=== PATIENT | female | born 1975 | race Caucasian/White ===

== ENCOUNTER 2016-12-08 10:51 | Observation (INO) ==
[2016-12-08] MEDS ORDERED: ONDANSETRON 4 MG/2 ML VIAL IV PRN (11:03)
[2016-12-08] MEDS ORDERED: ACETAMINOPHEN 325 MG TABLET PO PRN (11:03)
[2016-12-08] MEDS ORDERED: KETOROLAC 30 MG/1 ML VIAL IV ONE ×2 (11:06→13:00)
--- NOTE | 2016-12-08 11:44 | Internal Med History&Physical ---
Assessment and Plan (1) Chest pain Status: Acute Assessment and plan: 41-year-old female admitted to acute care * Chest pain. It appears to be quite atypical in nature. Her EKG was sinus rhythm in the office. Her troponin was negative yesterday in the emergency room. Patient is extremely anxious we will admit her under observation. Will check serial cardiac enzymes and will consult cardiology to evaluate. I do not think this pain is cardiac in nature * Leukocytosis with elevated liver enzymes. Probably a viral syndrome. Patient is not taking any hepatotoxic medications. Will repeat her blood work. Will check hepatitis profile. CT scan of the chest PE protocol did not reveal any obvious liver pathology. May need a dedicated ultrasound * Hypertension. Continue current medication * Generalized anxiety and depression. Continue current treatment * Discussed with patient. We will admit her under observation. (2) Elevated liver enzymes Status: Acute (3) Hypertension Status: Chronic (4) Obesity Status: Chronic History of Present Illness Chief complaint: Chest pain History of present illness: Ms. Gurrola is a 41 year old female with history of morbid obesity, hypertension, generalized anxiety disorder and pacemaker placement. She came to the office this morning with complaints of chest pain. Patient started having pain in her left calf yesterday evening. She was taken to a local hospital and then subsequently transferred to [facility]. Patient underwent evaluation with ultrasound and CT chest. It did not reveal any evidence of pulmonary embolus. She was given some pain medications and was sent home this morning.She continues to have chest pain and shortness of breath. Her chest pain is a squeezing type pain. She is quite anxious. She does not feel well. She stated that she was feeling quite well before this started yesterday. Patient was found to have elevated liver enzymes and leukocytosis on evaluation in the ER yesterday. She feels quite sick at this time. She denies any sinuses or cough. Home Medications Medication Instructions Recorded Confirmed Type Losartan/Hydrochlorothiazide 1 each PO DAILY 09/10/15 12/08/16 History [Losartan-Hctz 50-12.5 mg Tab] Nebivolol [Bystolic] 10 mg PO DAILY 09/10/15 12/08/16 History Sertraline [Zoloft] 50 mg PO DAILY 12/08/16 12/08/16 History Allergies Allergy/AdvReac Type Severity Reaction Status Date / Time codeine Allergy Severe SHORTNESS Verified 09/10/15 11:02 OF BREATH Penicillins Allergy Severe ITCHING Verified 09/10/15 11:02 Medical,Surgical,& Family Hx - Medical History Cardio: History of: Cardiac Dysrhythmia (Reveal implant August 2013), Hypertension, Pacemaker (2015. Dual-chamber), Cardiovascular Problems ( incomplete heart block) Psychological: History of: Depression Neurology: History of: Migraine No history of: Seizures Other: History of: Miscellaneous Medical Problems (morbid obesity) - Surgical History Abdominal Surgeries: Surgical HX of: Cholecystectomy (10 years), Hernia Repair Reproductive Surgeries: Surgical HX of;: Section, Dilation and Curettage Patient denies;: Genitourinary Surgery - Family History Family History: Reports;: Family Diabetes (Father), Family Hypertension - Social History Smoking Status: Never smoker Frequency of Alcohol Use: None Marital Status: Single Lives With:: Children Functional capacity: independent ambulation 12 point system: reviewed and no additional remarkable complaints except as stated (Mentioned in HPI) Exam - Constitutional Exam: Examination: GENERAL: NAD. She appears quite anxious HEENT: PERRLA. EOMI. Mucous membranes are moist. NECK: Neck is supple. No JVD. No carotid bruit. No thyromegaly. CVS: Regular rate and rhythm. S1 and S2 are normal. RESPIRATORY: Lungs are clear. No rales or rhonchi. ABDOMEN: Soft and nontender. Bowel sounds are present. No hepatosplenomegaly. EXT: No edema. Peripheral pulses are present. 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 Cranial nerves II through XII are grossly intact. Motor strength is 5 over 5 both upper and lower extremities. Sensory is intact. Deep tendon reflexes are present. SKIN: Warm and dry. MSK: No obvious deformity.
--- NOTE | 2016-12-08 12:33 | EKG Report ---
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
[2016-12-08 13:24] LABS: Basophils % 0.3 % (0.0-0.8); Hematocrit 38.2 VOL% (35.7-47.0); Hemoglobin 12.9 GM/DL (12.0-16.0); Immature Granulocytes % 0.4 %; Immature Granulocytes Absolute 0.04 #; Lymphocytes # 0.8 10*3/uL (1.4-4.0); Lymphocytes % 7.3 % (21.3-54.2); Mean Corpuscular HGB Conc 33.8 GM/DL (32-36); Mean Corpuscular Hemoglobin 29 PG (27-34); Mean Corpuscular Volume 85.1 FL (87-102); Mean Platelet Volume 9.4 FL (9.6-12.0); Monocytes # 0.4 10*3/uL (0.11-0.8); Neutrophils # 9.4 10*3/uL (1.4-7.4); Platelet Count 231 T/CUMM (130-400); Red Blood Count 4.49 MC/CUMM (3.8-5.5); Red Cell Distribution Width 13.5 % (9.3-17.3); White Blood Count 10.6 T/CUMM (4-12)
[2016-12-08 14:03] LABS: Albumin 3.3 G/DL (3.4-5.0); Bilirubin,Total 1.7 MG/DL (0.2-1.0); Calcium 8.6 MG/DL (8.5-10.1); Osmolality,Calculated 275.5 MOS/KG (273-304); Total Protein 6.7 G/DL (6.4-8.3)
[2016-12-08 14:04] LABS: Troponin I Only < 0.015 NG/ML (0.00-0.045)
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
[2016-12-08] MEDS ORDERED: PNEUMOCOCCAL VACCINE (23 VALENT) 0.5 ML VIAL IM ONE (14:50)
[2016-12-08 14:55] LABS: Hepatitis A Ab IgM Result Negative (Negative); Hepatitis B Core IgM Quant 0.16 Index; Hepatitis B Core IgM Result Negative (Negative); Hepatitis B Surface Ag Quant < 0.10 Index; Hepatitis B Surface Ag Result Negative (Negative); Hepatitis C Virus Ab Quant 0.07 Index; Hepatitis C Virus Ab Result Negative (Negative)
--- NOTE | 2016-12-08 15:25 | Internal Med Progress Note ---
Assessment and Plan (1) Nausea & vomiting Status: Acute Current Visit: Yes Qualifiers: Vomiting Intractability: non-intractable (2) Hypertension Status: Chronic Current Visit: Yes Qualifiers: Hypertension type: essential hypertension Qualified Code(s): I10 - Essential (primary) hypertension Internal Medicine - PN: Subj Interval history: This is a 41 year old female with history of HTN who is here in hospital with acute nausea, vomiting, body aches, and is starting to feel a little better since admission earlier this morning. Exam (Progress Note) - Constitutional Vitals: Period Temp Pulse Resp BP Sys/Hoff Pulse Ox Last 24 Hr 100.5 F 78 20 121/58 95 General appearance: no acute distress (appears fatigued) - Head Head exam: Present: normal inspection - Eye Eye exam: Present: EOMI - Respiratory Respiratory exam: Present: clear to auscultation bilaterally - Cardiovascular Cardiovascular exam: Present: regular rate and rhythm - GI/Abdominal GI/Abdominal exam: Present: hyperactive bowel sounds, soft. Absent: tenderness - Extremities Exam Extremities exam: Absent: edema - Back Exam Back exam: Present: normal inspection - Neurological Exam Neurological exam: Present: alert, oriented X3 - Psychiatric Psychiatric exam: Present: normal mood - Skin Skin exam: Present: warm, dry Results - Labs CBC & BMP: 12/08/16 13:06 12/08/16 13:05 - EKG EKG shows: sinus rhythm
[2016-12-08 17:49] LABS: Troponin I Only < 0.015 NG/ML (0.00-0.045)
[2016-12-08] MEDS ORDERED: ENOXAPARIN 40 MG/0.4 ML SYRINGE SUBCUT SCH (21:00)
[2016-12-08] MEDS: DOCUSATE SODIUM 100 MG CAPSULE PO SCH (21:06)
[2016-12-09 00:36] LABS: Apearance,Urine Slightly Hazy (Clear); Bacteria,Urine Occasional /HPF (Few); Bilirubin,Urine Negative (Negative); Blood, Urine Negative (Negative); Glucose,Urine (UA) Negative (Negative); Ketones,Urine Negative (Negative); Nitrite,Urine Negative (Negative); Protein,Urine 30 MG/DL; RBC,Urine 1 /HPF (0-4); Squamous Epithelial Cell,Urine Occasional /HPF (0-10); Urine Color Amber (Yellow); Urine Specific Gravity 1.026 (1.001-1.035); WBC,Urine 3 /HPF (0-6)
[2016-12-09] MEDS ORDERED: KETOROLAC 30 MG/1 ML VIAL IV PRN (00:49)
[2016-12-09] MEDS ORDERED: methylPREDNISolone SOD SUC 40 MG/1 ML VIAL IV SCH (01:00)
[2016-12-09] MEDS: SODIUM CHLORIDE 0.9% 1,000 ML IV SCH ×2 (01:03→11:10)
[2016-12-09 06:54] LABS: Troponin I Only < 0.015 NG/ML (0.00-0.045)
[2016-12-09 07:03] LABS: Calcium 8.6 MG/DL (8.5-10.1); Osmolality,Calculated 283.1 MOS/KG (273-304); Potassium 4.1 MMOL/L (3.5-5.1)
[2016-12-09] MEDS ORDERED: SERTRALINE 50 MG TABLET PO SCH (09:00)
[2016-12-09] MEDS ORDERED: PANTOPRAZOLE 40 MG TABLET PO SCH (09:00)
[2016-12-09] MEDS ORDERED: NEBIVOLOL 10 MG TABLET PO SCH (09:00)
[2016-12-09] MEDS ORDERED: LOSARTAN/HCTZ 50-12.5 MG TABLET PO SCH (09:00)
[2016-12-09] MEDS: DOCUSATE SODIUM 100 MG CAPSULE PO SCH (09:32)
[2016-12-09 11:48] VITALS: BP 133/74
--- NOTE | 2016-12-09 13:43 | Cardiology Progress Note ---
Assessment and Plan - Time spent with patient Time spent with patient: Less than 30 minutes (1) Obesity Status: Chronic Current Visit: No Qualifiers: Obesity type: due to excess calories (2) Hypertension Status: Chronic Current Visit: Yes Qualifiers: Hypertension type: essential hypertension Qualified Code(s): I10 - Essential (primary) hypertension (3) Chest pain Status: Acute Assessment and plan: This is atypical. Current Visit: Yes Cardiology - PN: Subj Interval history: Ms. Gurrola feels much better today no more nausea no more fatigue no more chest discomfort no more syncope or near syncope. I reviewed her transthoracic echo her ejection fraction is 65% or greater with no regional wall motion normalities she has never had exertional component of discomfort. Also discussed with her primary animal care technician Dr. Emeterio Turner yesterday. I do not think further cardiac workup is warranted at this time. I would recommend that she follow-up with Dr. Turner within the next month. I told her to notify me or him if he has she has any chest discomfort. I have recommended caloric restriction minimize Diet Mountain Dews, push water and daily exercise. Exam (Progress Note) - Constitutional Vitals: Period Temp Pulse Resp BP Sys/Hoff Pulse Ox Last 24 Hr 96.2 F-98 F 20-75 18-22 118-151/60-86 92-96 General appearance: morbidly obese - Respiratory Respiratory exam: Present: clear to auscultation bilaterally - Cardiovascular Cardiovascular exam: Present: regular rate and rhythm Result/EKG - Labs CBC & BMP: 12/08/16 13:06 12/09/16 06:05 Labs: Laboratory Results - last 24 hr 12/08/16 12/08/16 12/08/16 13:05 13:06 13:06 ESR [place] 29 H Sodium 139 Potassium 4.0 Chloride 102 Carbon Dioxide 25 Anion Gap 16.0 H BUN 11 Creatinine 0.80 GFR Calculation 134 BUN/Creatinine Ratio 13.00 Glucose 91 Calculated Osmolality 275.5 Calcium 8.6 Total Bilirubin 1.70 H AST 202 H ALT 180 H Alkaline Phosphatase 81 Total Creatine Kinase 440 H D CK-MB (CK-2) < 1.0 Troponin I < 0.015 B-Natriuretic Peptide Total Protein 6.7 Albumin 3.3 L Globulin 3.4 Albumin/Globulin Ratio 0.9 L Urine Color Urine Appearance Urine pH Ur Specific [place] Urine Protein Urine Glucose (UA) Urine Ketones Urine Blood Urine Nitrate Urine Bilirubin Urine Urobilinogen Urine Leukocytes Urine RBC Urine WBC Ur Squamous Epith Cells Urine Bacteria Ur Culture Indicated? Hepatitis A IgM Ab Hep Bs Antigen Hep B Core IgM Ab Hepatitis C Antibody 12/08/16 12/08/16 12/08/16 13:07 13:07 16:38 ESR [place] Sodium Potassium Chloride Carbon Dioxide Anion Gap BUN Creatinine GFR Calculation BUN/Creatinine Ratio Glucose Calculated Osmolality Calcium Total Bilirubin AST ALT Alkaline Phosphatase Total Creatine Kinase 434 H CK-MB (CK-2) < 1.0 Troponin I < 0.015 B-Natriuretic Peptide 30 Total Protein Albumin Globulin Albumin/Globulin Ratio Urine Color Urine Appearance Urine pH Ur Specific [place] Urine Protein Urine Glucose (UA) Urine Ketones Urine Blood Urine Nitrate Urine Bilirubin Urine Urobilinogen Urine Leukocytes Urine RBC Urine WBC Ur Squamous Epith Cells Urine Bacteria Ur Culture Indicated? Hepatitis A IgM Ab Negative Hep Bs Antigen Negative Hep B Core IgM Ab Negative Hepatitis C Antibody Negative 12/09/16 12/09/16 12/09/16 00:29 06:05 06:05 ESR [place] Sodium 142 Potassium 4.1 Chloride 106 Carbon Dioxide 24 Anion Gap 16.1 H BUN 11 Creatinine 0.80 GFR Calculation 135 BUN/Creatinine Ratio 13.00 Glucose 132 H Calculated Osmolality 283.1 Calcium 8.6 Total Bilirubin AST ALT Alkaline Phosphatase Total Creatine Kinase 442 H CK-MB (CK-2) < 1.0 Troponin I < 0.015 B-Natriuretic Peptide Total Protein Albumin Globulin Albumin/Globulin Ratio Urine Color [place] Urine Appearance Slightly hazy Urine pH 5.0 Ur Specific [place] 1.026 Urine Protein 30 Urine Glucose (UA) Negative Urine Ketones Negative Urine Blood Negative Urine Nitrate Negative Urine Bilirubin Negative Urine Urobilinogen 4.0 H Urine Leukocytes Negative Urine RBC 1 Urine WBC 3 Ur Squamous Epith Cells Occasional Urine Bacteria Occasional Ur Culture Indicated? Not indicated Hepatitis A IgM Ab Hep Bs Antigen Hep B Core IgM Ab Hepatitis C Antibody
--- NOTE | 2016-12-09 15:29 | Discharge Summary ---
Hospital Course - Hospital Course Hospital Course: This is a 41 year old female with history of HTN who is here in hospital with acute nausea, vomiting, body aches, and is starting to feel a little better since admission earlier this morning. She was found to have elevated liver function enzymes and was responsive to fluids. Body aches responsive to Toradol and Solumedrol that were started last night. Also, Cozaar was discontinued for now. She feels much better and would like to go home. She will follow up with Dr. Cohen. Diagnosis - Discharge Diagnosis (1) Nausea & vomiting Status: Resolved (2) Hypertension Status: Chronic (3) Elevated liver enzymes Status: Acute Discharge Plan - Discharge Data Disposition: Disch To Home/Self Care Condition at Discharge: Stable Activity: resume usual activities as tolerated - Discharge Medications New Docusate Sodium Cap [Colace Cap] 100 mg PO BID capsule Hydrochlorothiazide [Microzide] 12.5 mg PO AC BREAKFAST #30 capsule Sertraline [Zoloft] 50 mg PO DAILY tablet methylPREDNISolone DOSEPAK [Medrol Dosepak] 4 mg PO DIRECTED #1 pack Continue Nebivolol [Bystolic] 10 mg PO DAILY Discontinued Losartan/Hydrochlorothiazide [Losartan-Hctz 50-12.5 mg Tab] 1 each PO DAILY Sertraline [Zoloft] 50 mg PO DAILY - Follow Up or Referral Follow Up: Michael Cohen MD [Primary Care Provider] - - Forms/Instructions Exam - Constitutional Vitals: Period Temp Pulse Resp BP Sys/Hoff Pulse Ox Last 24 Hr 96.2 F-98 F 20-75 18-22 118-151/60-86 92-96 General appearance: no acute distress - Respiratory Respiratory exam: Present: clear to auscultation bilaterally - Cardiovascular Cardiovascular exam: Present: regular rate and rhythm - GI/Abdominal GI/Abdominal exam: Present: soft. Absent: tenderness - Extremities Exam Extremities exam: Absent: edema - Neurological Exam Neurological exam: Present: alert, oriented X3 - Psychiatric Psychiatric exam: Present: normal mood - Skin Skin exam: Present: warm, dry Discharge Results Procedures and tests throughout hospitalization: Pending Orders 12/08/16 16:46 Blood Culture Stat Labs on day of discharge: Labs from last 24 hours 12/09/16 12/09/16 12/09/16 06:05 06:05 00:29 Sodium 142 Potassium 4.1 Chloride 106 Carbon Dioxide 24 Anion Gap 16.1 H BUN 11 Creatinine 0.80 GFR Calculation 135 BUN/Creatinine Ratio 13.00 Glucose 132 H Calculated Osmolality 283.1 Calcium 8.6 Total Creatine Kinase 442 H CK-MB (CK-2) < 1.0 Troponin I < 0.015 Urine Color [place] Urine Appearance Slightly hazy Urine pH 5.0 Ur Specific [place] 1.026 Urine Protein 30 Urine Glucose (UA) Negative Urine Ketones Negative Urine Blood Negative Urine Nitrate Negative Urine Bilirubin Negative Urine Urobilinogen 4.0 H Urine Leukocytes Negative Urine RBC 1 Urine WBC 3 Ur Squamous Epith Cells Occasional Urine Bacteria Occasional Ur Culture Indicated? Not indicated 12/08/16 16:38 Sodium Potassium Chloride Carbon Dioxide Anion Gap BUN Creatinine GFR Calculation BUN/Creatinine Ratio Glucose Calculated Osmolality Calcium Total Creatine Kinase 434 H CK-MB (CK-2) < 1.0 Troponin I < 0.015 Urine Color Urine Appearance Urine pH Ur Specific [place] Urine Protein Urine Glucose (UA) Urine Ketones Urine Blood Urine Nitrate Urine Bilirubin Urine Urobilinogen Urine Leukocytes Urine RBC Urine WBC Ur Squamous Epith Cells Urine Bacteria Ur Culture Indicated? DS: Provider Date of admission: 12/08/16 12:06 Primary care physician: Michael Cohen MD Attending physician on admission: Michael Cohen MD Consults: 12/08/16 11:03 Consult to Case Mgmt/Social Srvs [CONS] Routine Reason for Case Mgmt/Social Srvs: Discharge Planning Consult to Physician [CONS] Routine Comment: Chest pain Consulting Provider: Cardiology - [facility] Consulting Provider Notified: Yes When should Consulting Provider be notified: Now Consult to Specialist Group: Cardiology When should Consulting Provider be notified: Now Person Notified: LJ Date Notified: 12/08/16 Time Notified: 12:25 12/08/16 11:16 Consult to Pharmacy [CONS] Routine Reason for Pharmacy Consult: Adjust Meds Renal Funct Discharging clinician: Yenny Hubbard DO Expected date of discharge: 12/09/16
--- NOTE | 2016-12-09 15:29 | Internal Med Progress Note ---
Assessment and Plan (1) Nausea & vomiting Status: Acute Current Visit: Yes Qualifiers: Vomiting Intractability: non-intractable (2) Hypertension Status: Chronic Current Visit: Yes Qualifiers: Hypertension type: essential hypertension Qualified Code(s): I10 - Essential (primary) hypertension (3) Elevated liver enzymes Status: Acute Current Visit: Yes Internal Medicine - PN: Subj Interval history: This is a 41 year old female with history of HTN who is here in hospital with acute nausea, vomiting, body aches, and is starting to feel a little better since admission earlier this morning. She was found to have elevated liver function enzymes and was responsive to fluids. Body aches responsive to Toradol and Solumedrol that were started last night. Also, Cozaar was discontinued for now. She feels much better and would like to go home. Exam (Progress Note) - Constitutional Vitals: Period Temp Pulse Resp BP Sys/Hoff Pulse Ox Last 24 Hr 96.2 F-98 F 20-75 18-22 118-151/60-86 92-96 General appearance: no acute distress - Respiratory Respiratory exam: Present: clear to auscultation bilaterally - Cardiovascular Cardiovascular exam: Present: regular rate and rhythm - GI/Abdominal GI/Abdominal exam: Present: soft. Absent: tenderness - Extremities Exam Extremities exam: Absent: edema - Neurological Exam Neurological exam: Present: alert, oriented X3 - Psychiatric Psychiatric exam: Present: normal mood - Skin Skin exam: Present: warm, dry Results - Labs CBC & BMP: 12/08/16 13:06 12/09/16 06:05
--- NOTE | 2016-12-09 16:30 | ECHO Report ---
Stella Gurrola Exam Date: 12/08/2016 17:37 Referring Physician: Technologist: Marisol Mcclellan RDCS Age: 41 Ht (in): Wt (lb): Gender: F Exam Location: [facility] Echo Indications: Chest pain, unspecified, Shortness of breath, Essential (primary) hypertension, Morbid (severe) obesity due to excess calories BP: / HR: Rhythm: Sinus Technical Quality: IMPRESSIONS Left ventricular ejection fraction is estimated at 65 %. There is no regional wall motion abnormality. Diastolic parameters are most consistent with grade 2 diastolic dysfunction or pseudonormalization. There is a prominent anterior fat pad. Pacemaker wire visualized in the right ventricle. There is mild tricuspid and mild pulmonic insufficiency with estimated PA pressure of 28/4+ the right atrial pressure added to each component MEASUREMENTS (Male / Female) Normal Values 2D ECHO LV Diastolic Diameter PLAX 4.5 cm 4.2 - 5.9 / 3.9 - 5.3 cm LV Systolic Diameter PLAX 2.5 cm LV Fractional Shortening PLAX 44.2 % IVS Diastolic Thickness 1.1 cm 0.6 - 1.0 / 0.6 - 0.9 cm LVPW Diastolic Thickness 1.1 cm 0.6 - 1.0 / 0.6 - 0.9 cm RV Internal Dim ED PLAX 4.0 cm Aortic Root Diameter 3.2 cm LA Systolic Diameter LX 3.5 cm 3.0 - 4.0 / 2.7 - 3.8 cm DOPPLER TR Peak Velocity 265.0 cm/s TR Peak Gradient 28.1 mmHg FINDINGS Left Ventricle Normal left ventricular cavity size. Mild left ventricular hypertrophy. Left ventricular ejection fraction is estimated at 65 %. Diastolic parameters are most consistent with grade 2 diastolic dysfunction or pseudonormalization. There is a prominent anterior fat pad. There is no regional wall motion abnormality Right Ventricle Normal right ventricular size and systolic function. Pacemaker wire visualized in the right ventricle. Right Atrium Normal right atrial size. Pacemaker wire in the right atrial cavity. Left Atrium The left atrium is normal in size. Mitral Valve Morphologically normal mitral valve without significant stenosis or prolapse. There is no mitral regurgitation. Aortic Valve Morphologically normal aortic valve without significant sclerosis or stenosis. There is no aortic regurgitation. Tricuspid Valve Morphologically normal tricuspid valve. Trace to mild tricuspid valve regurgitation. Tricuspid regurgitation velocities suggest a RVSP of 28 mmHg plus the right atrial pressure. Pulmonic Valve Morphologically normal pulmonic valve. Mild pulmonic insufficiency diastolic velocity 1 m/s Pericardium Normal pericardium without effusion. Aorta Normal ascending aorta dimension. Venessa Marvin (Electronically Signed) Final Date: 09 December 2016 12:04
== END 2016-12-09 17:51 | disposition home or self-care (01) ==
LOC: N.4E
PROVIDERS: ADMIT Internal Medicine; ATTEND Internal Medicine

== ENCOUNTER 2019-02-14 13:04 | Inpatient (IN) ==
[2019-02-14] MEDS ORDERED: KETOROLAC 30 MG/1 ML VIAL IV STA (14:28)
[2019-02-14] MEDS ORDERED: SODIUM CHLORIDE 0.9% 1,000 ML IV ONE (14:28)
[2019-02-14 15:05] LABS: Basophils % 0.3 % (0.0-0.8); Eosinophils % 0.3 % (0.00-10.9); Hematocrit 38.2 VOL% (35.7-47.0); Immature Granulocytes % 0.9 %; Immature Granulocytes Absolute 0.13 #; Lymphocytes # 1.6 10*3/uL (1.4-4.0); Lymphocytes % 10.9 % (21.3-54.2); Mean Corpuscular HGB Conc 31.4 GM/DL (32-36); Mean Corpuscular Volume 88.2 FL (87-102); Mean Platelet Volume 9.5 FL (9.6-12.0); Monocytes % 6.8 % (1.7-12.7); Neutrophils % 80.8 % (38.7-73.9); Platelet Count 337 T/CUMM (130-400); Red Blood Count 4.33 MC/CUMM (3.8-5.5); Red Cell Distribution Width 13.3 % (9.3-17.3); White Blood Count 14.9 T/CUMM (4-12)
[2019-02-14 15:36] LABS: Calcium 8.2 MG/DL (8.5-10.1); Osmolality,Calculated 272.8 MOS/KG (273-304)
[2019-02-14] MEDS ORDERED: ONDANSETRON 4 MG/2 ML VIAL IV STA (15:53)
[2019-02-14] MEDS ORDERED: ONDANSETRON 4 MG/2 ML VIAL IV PRN (16:37)
[2019-02-14 17:21] LABS: Apearance,Urine CLEAR (Clear); Bilirubin,Urine Negative (Negative); Blood, Urine Negative (Negative); Glucose,Urine (UA) Negative (Negative); Ketones,Urine Negative (Negative); Mucus,Urine Many /LPF (Occasional); Nitrite,Urine Negative (Negative); Protein,Urine Negative; Squamous Epithelial Cell,Urine Occasional /HPF (0-10); Urine Color Amber (Yellow); Urine Specific Gravity 1.021 (1.001-1.035); WBC,Urine 1 /HPF (0-6)
[2019-02-14] MEDS: ACETAMINOPHEN 325 MG TABLET PO PRN (18:03)
[2019-02-14] MEDS: cefTRIAXone 1,000 MG in SYRINGE 1 EACH IV SCH (20:06)
[2019-02-14] MEDS: SODIUM CHLORIDE 0.9% 1,000 ML IV SCH (20:06)
[2019-02-14] MEDS: ENOXAPARIN 40 MG/0.4 ML SYRINGE SUBCUT SCH (20:16)
[2019-02-14] MEDS: DOCUSATE SODIUM 100 MG CAPSULE PO SCH (20:16)
[2019-02-14] MEDS ORDERED: GENTAMICIN IV SCH (21:00)
[2019-02-14] MEDS ORDERED: DOCUSATE SODIUM 100 MG CAPSULE PO SCH (21:00)
[2019-02-14] MEDS ORDERED: SODIUM CHLORIDE 0.9% IV SCH (21:00)
[2019-02-14] MEDS: GENTAMICIN IV SCH (21:19)
[2019-02-14] MEDS: SODIUM CHLORIDE 0.9% IV SCH (21:19)
[2019-02-15] MEDS: ACETAMINOPHEN 325 MG TABLET PO PRN ×3 (01:21→20:02)
[2019-02-15] MEDS: KETOROLAC 30 MG/1 ML VIAL IV PRN (03:14)
[2019-02-15] MEDS: SODIUM CHLORIDE 0.9% 1,000 ML IV SCH ×2 (04:37→18:59)
[2019-02-15] MEDS: cefTRIAXone 1,000 MG in SYRINGE 1 EACH IV SCH ×2 (05:17→18:05)
[2019-02-15 05:41] LABS: Albumin 2.2 G/DL (3.4-5.0); Bilirubin,Total 2.8 MG/DL (0.2-1.0); Calcium 7.9 MG/DL (8.5-10.1); Osmolality,Calculated 276.5 MOS/KG (273-304); Total Protein 6.4 G/DL (6.4-8.3)
[2019-02-15] MEDS ORDERED: SERTRALINE 50 MG TABLET PO SCH (09:00)
[2019-02-15] MEDS: PANTOPRAZOLE 40 MG TABLET PO SCH (09:16)
[2019-02-15] MEDS: NEBIVOLOL 10 MG TABLET PO SCH (09:16)
[2019-02-15] MEDS: SERTRALINE 100 MG TABLET PO SCH ×2 (09:16→20:02)
[2019-02-15 09:32] LABS: Basophils % 0.2 % (0.0-0.8); Eosinophils % 0.2 % (0.00-10.9); Hematocrit 33.6 VOL% (35.7-47.0); Hemoglobin 10.5 GM/DL (12.0-16.0); Immature Granulocytes % 0.9 %; Immature Granulocytes Absolute 0.11 #; Lymphocytes # 1.1 10*3/uL (1.4-4.0); Lymphocytes % 8.4 % (21.3-54.2); Mean Corpuscular HGB Conc 31.3 GM/DL (32-36); Mean Platelet Volume 9.4 FL (9.6-12.0); Monocytes % 5.1 % (1.7-12.7); Neutrophils % 85.2 % (38.7-73.9); Platelet Count 281 T/CUMM (130-400); Red Blood Count 3.82 MC/CUMM (3.8-5.5); Red Cell Distribution Width 13.4 % (9.3-17.3); White Blood Count 12.8 T/CUMM (4-12)
[2019-02-15] MEDS: DOCUSATE SODIUM 100 MG CAPSULE PO SCH ×2 (10:01→21:14)
[2019-02-15] MEDS: ONDANSETRON 4 MG/2 ML VIAL IV PRN ×2 (15:04→18:04)
[2019-02-15] MEDS: HYDROmorphone 2 MG/1 ML VIAL IV SCH ×3 (15:57→18:12)
[2019-02-15] MEDS: SODIUM CHLOR 0.9% KCL 20 MEQ 20 MEQ/1,000 ML BAG IV SCH (16:18)
[2019-02-15] MEDS: ENOXAPARIN 40 MG/0.4 ML SYRINGE SUBCUT SCH (17:32)
[2019-02-15] MEDS: GENTAMICIN IV SCH (21:07)
[2019-02-15] MEDS: SODIUM CHLORIDE 0.9% IV SCH (21:07)
[2019-02-15] MEDS: HYDROmorphone 2 MG/1 ML VIAL IV PRN (21:07)
[2019-02-15] MEDS ORDERED: IBUPROFEN 600 MG TABLET PO PRN (21:25)
[2019-02-16] MEDS: ONDANSETRON 4 MG/2 ML VIAL IV PRN ×4 (00:19→16:13)
[2019-02-16] MEDS: KETOROLAC 30 MG/1 ML VIAL IV PRN ×2 (02:28→10:53)
[2019-02-16] MEDS: SODIUM CHLOR 0.9% KCL 20 MEQ 20 MEQ/1,000 ML BAG IV SCH ×3 (03:47→17:02)
[2019-02-16] MEDS: cefTRIAXone 1,000 MG in SYRINGE 1 EACH IV SCH (04:57)
[2019-02-16 05:03] LABS: Basophils % 0.1 % (0.0-0.8); Eosinophils % 0.1 % (0.00-10.9); Hematocrit 30.8 VOL% (35.7-47.0); Hemoglobin 9.8 GM/DL (12.0-16.0); Immature Granulocytes % 1.3 %; Immature Granulocytes Absolute 0.19 #; Lymphocytes # 1.2 10*3/uL (1.4-4.0); Lymphocytes % 7.8 % (21.3-54.2); Mean Corpuscular HGB Conc 31.8 GM/DL (32-36); Mean Corpuscular Volume 88.3 FL (87-102); Mean Platelet Volume 10.2 FL (9.6-12.0); Monocytes % 3.6 % (1.7-12.7); Neutrophils % 87.1 % (38.7-73.9); Platelet Count 319 T/CUMM (130-400); Red Blood Count 3.49 MC/CUMM (3.8-5.5); Red Cell Distribution Width 13.8 % (9.3-17.3); White Blood Count 15.1 T/CUMM (4-12)
[2019-02-16 05:35] LABS: Bilirubin,Total 1.7 MG/DL (0.2-1.0); Calcium 7.8 MG/DL (8.5-10.1); Osmolality,Calculated 272.1 MOS/KG (273-304); Total Protein 6.2 G/DL (6.4-8.3)
[2019-02-16] MEDS: ACETAMINOPHEN 325 MG TABLET PO PRN (05:55)
[2019-02-16] MEDS ORDERED: hydroCHLOROthiazide 25 MG TABLET PO SCH (07:30)
[2019-02-16] MEDS ORDERED: CLINDAMYCIN INJ 900 MG in PREMIX 1 EACH IV SCH (09:00)
[2019-02-16] MEDS ORDERED: CLINDAMYCIN 600 MG/4 ML VIAL IM SCH (09:00)
[2019-02-16] MEDS ORDERED: CLINDAMYCIN 600 MG/4 ML VIAL IV SCH (10:50)
[2019-02-16] MEDS: PIPERACILLIN/TAZOBACTAM 3,375 MG in SODIUM CHLORIDE 0.9% 100 ML IV SCH ×2 (10:52→18:43)
[2019-02-16] MEDS: PANTOPRAZOLE 40 MG TABLET PO SCH (10:53)
[2019-02-16] MEDS: SERTRALINE 100 MG TABLET PO SCH ×2 (10:53→20:44)
[2019-02-16] MEDS: DOCUSATE SODIUM 100 MG CAPSULE PO SCH ×2 (13:26→20:44)
[2019-02-16] MEDS: NEBIVOLOL 10 MG TABLET PO SCH (13:27)
[2019-02-16] MEDS: CLINDAMYCIN INJ 600 MG in PREMIX 1 EACH IV SCH (15:47)
[2019-02-16] MEDS: ENOXAPARIN 40 MG/0.4 ML SYRINGE SUBCUT SCH (17:02)
[2019-02-16] MEDS: methylPREDNISolone SOD SUC 40 MG/1 ML VIAL IV SCH (18:44)
[2019-02-16] MEDS: ACETAMINOPHEN 500 MG TABLET PO PRN (18:49)
[2019-02-17] MEDS: CLINDAMYCIN INJ 600 MG in PREMIX 1 EACH IV SCH ×3 (00:30→17:00)
[2019-02-17] MEDS: SODIUM CHLOR 0.9% KCL 20 MEQ 20 MEQ/1,000 ML BAG IV SCH ×3 (00:31→08:44)
[2019-02-17] MEDS: methylPREDNISolone SOD SUC 40 MG/1 ML VIAL IV SCH ×3 (02:51→17:01)
[2019-02-17] MEDS: PIPERACILLIN/TAZOBACTAM 3,375 MG in SODIUM CHLORIDE 0.9% 100 ML IV SCH ×3 (02:52→17:54)
[2019-02-17] MEDS: ONDANSETRON 4 MG/2 ML VIAL IV PRN (04:24)
[2019-02-17 05:30] LABS: Basophils # 0.1 10*3/uL (0.0-0.2); Basophils % 0.3 % (0.0-0.8); Hematocrit 32.1 VOL% (35.7-47.0); Hemoglobin 10.1 GM/DL (12.0-16.0); Immature Granulocytes % 1.8 %; Immature Granulocytes Absolute 0.34 #; Lymphocytes # 0.8 10*3/uL (1.4-4.0); Lymphocytes % 3.9 % (21.3-54.2); Mean Corpuscular HGB Conc 31.5 GM/DL (32-36); Mean Corpuscular Volume 87.5 FL (87-102); Mean Platelet Volume 9.9 FL (9.6-12.0); Monocytes % 2.2 % (1.7-12.7); Neutrophils % 91.8 % (38.7-73.9); Platelet Count 351 T/CUMM (130-400); Red Blood Count 3.67 MC/CUMM (3.8-5.5); Red Cell Distribution Width 13.9 % (9.3-17.3)
[2019-02-17 06:00] LABS: Albumin 1.8 G/DL (3.4-5.0); Bilirubin,Total 1.6 MG/DL (0.2-1.0); Calcium 7.7 MG/DL (8.5-10.1); Osmolality,Calculated 275.1 MOS/KG (273-304); Total Protein 6.3 G/DL (6.4-8.3)
[2019-02-17 07:10] LABS: Band Neutrophils 5 % (0-10); Hypochromasia 1+; Lymphocytes 1 % (20-55); Ovalocytes Slight; Platelet Estimate Adequate; Segmented Neutrophils 92 % (50-85); Total Cells Counted 100
[2019-02-17] MEDS: SERTRALINE 100 MG TABLET PO SCH ×2 (08:46→20:45)
[2019-02-17] MEDS: ACETAMINOPHEN 500 MG TABLET PO PRN ×2 (08:46→20:41)
[2019-02-17] MEDS: DOCUSATE SODIUM 100 MG CAPSULE PO SCH ×2 (08:46→20:45)
[2019-02-17] MEDS: PANTOPRAZOLE 40 MG TABLET PO SCH (08:46)
[2019-02-17] MEDS: SODIUM BICARB INJ 50 MEQ, POTASSIUM CHLORIDE INJ 20 MEQ in SODIUM CHLORIDE 0.45% 1,000 ML IV SCH ×2 (14:37→20:37)
[2019-02-17] MEDS: ENOXAPARIN 30 MG/0.3 ML SYRINGE SUBCUT SCH (20:44)
[2019-02-18] MEDS: CLINDAMYCIN INJ 600 MG in PREMIX 1 EACH IV SCH ×3 (01:43→16:01)
[2019-02-18] MEDS: PIPERACILLIN/TAZOBACTAM 3,375 MG in SODIUM CHLORIDE 0.9% 100 ML IV SCH ×3 (02:19→16:40)
[2019-02-18] MEDS: SODIUM BICARB INJ 50 MEQ, POTASSIUM CHLORIDE INJ 20 MEQ in SODIUM CHLORIDE 0.45% 1,000 ML IV SCH ×4 (02:48→21:46)
[2019-02-18 05:35] LABS: Calcium 7.9 MG/DL (8.5-10.1); Osmolality,Calculated 288.4 MOS/KG (273-304)
[2019-02-18 06:01] LABS: Basophils # 0.1 10*3/uL (0.0-0.2); Basophils % 0.2 % (0.0-0.8); Hematocrit 33.9 VOL% (35.7-47.0); Hemoglobin 10.8 GM/DL (12.0-16.0); Immature Granulocytes % 1.5 %; Immature Granulocytes Absolute 0.33 #; Lymphocytes # 1.2 10*3/uL (1.4-4.0); Lymphocytes % 5.1 % (21.3-54.2); Mean Corpuscular HGB Conc 31.9 GM/DL (32-36); Mean Corpuscular Volume 87.8 FL (87-102); Mean Platelet Volume 10.3 FL (9.6-12.0); Monocytes % 3.1 % (1.7-12.7); Neutrophils % 90.1 % (38.7-73.9); Platelet Count 434 T/CUMM (130-400); Red Blood Count 3.86 MC/CUMM (3.8-5.5); Red Cell Distribution Width 14.2 % (9.3-17.3); White Blood Count 22.6 T/CUMM (4-12)
[2019-02-18 07:26] LABS: Hypochromasia 1+; Lymphocytes 5 % (20-55); Platelet Estimate Adequate; Segmented Neutrophils 92 % (50-85); Total Cells Counted 100
[2019-02-18] MEDS: SERTRALINE 100 MG TABLET PO SCH ×2 (08:47→21:39)
[2019-02-18] MEDS: PANTOPRAZOLE 40 MG TABLET PO SCH (08:47)
[2019-02-18] MEDS: DOCUSATE SODIUM 100 MG CAPSULE PO SCH ×2 (08:47→21:39)
[2019-02-18] MEDS: ACETAMINOPHEN 500 MG TABLET PO PRN (20:00)
[2019-02-18] MEDS: traZODone 50 MG TABLET PO PRN (21:39)
[2019-02-18] MEDS: ENOXAPARIN 30 MG/0.3 ML SYRINGE SUBCUT SCH (21:47)
[2019-02-19] MEDS: CLINDAMYCIN INJ 600 MG in PREMIX 1 EACH IV SCH ×2 (00:32→07:56)
[2019-02-19] MEDS: HYDROmorphone 2 MG/1 ML VIAL IV PRN ×5 (00:33→17:57)
[2019-02-19] MEDS: ACETAMINOPHEN 500 MG TABLET PO PRN ×2 (02:47→21:24)
[2019-02-19] MEDS: PIPERACILLIN/TAZOBACTAM 3,375 MG in SODIUM CHLORIDE 0.9% 100 ML IV SCH (02:49)
[2019-02-19 04:59] LABS: Calcium 6.9 MG/DL (8.5-10.1); Osmolality,Calculated 281.8 MOS/KG (273-304)
[2019-02-19] MEDS: SODIUM BICARB INJ 50 MEQ, POTASSIUM CHLORIDE INJ 20 MEQ in SODIUM CHLORIDE 0.45% 1,000 ML IV SCH ×2 (07:11→14:48)
[2019-02-19] MEDS: LEVOFLOXACIN INJ 500 MG in PREMIX 1 EACH IV SCH (09:06)
[2019-02-19] MEDS ORDERED: BUPIVACAINE 0.5% 50 ML VIAL ONE (10:51)
[2019-02-19] MEDS ORDERED: LIDOCAINE 1%/EPI INJ 20 ML VIAL ONE (10:51)
[2019-02-19] MEDS ORDERED: SCOPOLAMINE 1.5 MG PATCH TRANSDERM ONE (11:00)
[2019-02-19] MEDS ORDERED: HYDROmorphone 2 MG/1 ML VIAL ONE (12:32)
[2019-02-19] MEDS ORDERED: ONDANSETRON 4 MG/2 ML VIAL ONE (12:32)
[2019-02-19] MEDS ORDERED: PROPOFOL 200 MG/20 ML VIAL IV ONE (12:41)
[2019-02-19] MEDS ORDERED: DESFLURANE 1 UNIT/15 MINUTE INH ONE (12:42)
[2019-02-19] MEDS ORDERED: fentaNYL 100 MCG/2 ML VIAL ONE (12:42)
[2019-02-19] MEDS ORDERED: PHENYLEPHRINE 1 MG/10 ML SYRINGE IV ONE (12:43)
[2019-02-19] MEDS ORDERED: SUCCINYLCHOLINE 200 MG/10 ML VIAL ONE (12:43)
[2019-02-19] MEDS ORDERED: ROCURONIUM 100 MG/10 ML VIAL IV ONE (12:43)
[2019-02-19] MEDS ORDERED: HYDROmorphone 2 MG/1 ML VIAL IV PRN (12:44)
[2019-02-19] MEDS ORDERED: ONDANSETRON 4 MG/2 ML VIAL IV PRN (12:44)
[2019-02-19] MEDS: SERTRALINE 100 MG TABLET PO SCH ×2 (14:43→20:46)
[2019-02-19] MEDS: PANTOPRAZOLE 40 MG TABLET PO SCH (14:43)
[2019-02-19] MEDS: DOCUSATE SODIUM 100 MG CAPSULE PO SCH ×2 (14:48→20:46)
[2019-02-19] MEDS: traZODone 50 MG TABLET PO PRN (20:45)
[2019-02-19] MEDS: ENOXAPARIN 30 MG/0.3 ML SYRINGE SUBCUT SCH (20:46)
[2019-02-20] MEDS: SODIUM BICARB INJ 50 MEQ, POTASSIUM CHLORIDE INJ 20 MEQ in SODIUM CHLORIDE 0.45% 1,000 ML IV SCH ×2 (03:44→20:47)
[2019-02-20 06:27] LABS: Calcium 7.1 MG/DL (8.5-10.1); Osmolality,Calculated 271.1 MOS/KG (273-304)
[2019-02-20] MEDS: HYDROmorphone 2 MG/1 ML VIAL IV PRN ×2 (06:33→15:11)
[2019-02-20] MEDS ORDERED: ALBUTEROL 2.5 MG/3 ML NEB RESP TX PRN (08:42)
[2019-02-20] MEDS: LEVOFLOXACIN INJ 500 MG in PREMIX 1 EACH IV SCH (09:00)
[2019-02-20] MEDS ORDERED: methylPREDNISolone SOD SUC 40 MG/1 ML VIAL IV ONE (09:18)
[2019-02-20] MEDS ORDERED: diphenhydrAMINE 50 MG/1 ML VIAL IM ONE (09:18)
[2019-02-20 09:33] LABS: Basophils % 0.3 % (0.0-0.8); Eosinophils # 0.1 10*3/uL (0.0-0.87); Eosinophils % 0.6 % (0.00-10.9); Hematocrit 28.7 VOL% (35.7-47.0); Hemoglobin 9.3 GM/DL (12.0-16.0); Immature Granulocytes Absolute 1.28 #; Lymphocytes # 1.6 10*3/uL (1.4-4.0); Lymphocytes % 9.9 % (21.3-54.2); Mean Corpuscular HGB Conc 32.4 GM/DL (32-36); Mean Corpuscular Volume 85.9 FL (87-102); Mean Platelet Volume 9.5 FL (9.6-12.0); Monocytes % 4.2 % (1.7-12.7); Platelet Count 367 T/CUMM (130-400); Red Blood Count 3.34 MC/CUMM (3.8-5.5); Red Cell Distribution Width 14.3 % (9.3-17.3)
[2019-02-20 09:54] LABS: Band Neutrophils 3 % (0-10); Hypochromasia 1+; Lymphocytes 7 % (20-55); Platelet Estimate Adequate; Segmented Neutrophils 87 % (50-85); Total Cells Counted 100
[2019-02-20 10:12] LABS: Calcium 7.2 MG/DL (8.5-10.1); Osmolality,Calculated 270.2 MOS/KG (273-304)
[2019-02-20] MEDS ORDERED: ALBUTEROL 2.5 MG/3 ML NEB RESP TX SCH (11:00)
[2019-02-20] MEDS: ALBUTEROL 2.5 MG/3 ML NEB RESP TX SCH ×2 (12:45→19:15)
[2019-02-20] MEDS ORDERED: LIDOCAINE 1%/EPI INJ 20 ML VIAL ONE (12:50)
[2019-02-20] MEDS ORDERED: BUPIVACAINE 0.5% 50 ML VIAL ONE (12:50)
[2019-02-20] MEDS ORDERED: ALBUTEROL 2.5 MG/3 ML NEB RESP TX STA (14:10)
[2019-02-20] MEDS ORDERED: PROPOFOL 200 MG/20 ML VIAL IV ONE (14:12)
[2019-02-20] MEDS ORDERED: fentaNYL 100 MCG/2 ML VIAL ONE (14:13)
[2019-02-20] MEDS ORDERED: MIDAZOLAM 2 MG/2 ML VIAL ONE (14:13)
[2019-02-20] MEDS ORDERED: DEXAMETHASONE 4 MG/1 ML VIAL ONE (14:14)
[2019-02-20] MEDS ORDERED: ONDANSETRON 4 MG/2 ML VIAL ONE (14:14)
[2019-02-20] MEDS: PIPERACILLIN/TAZOBACTAM 3,375 MG in SODIUM CHLORIDE 0.9% 100 ML IV SCH ×2 (15:10→20:45)
[2019-02-20] MEDS: SERTRALINE 100 MG TABLET PO SCH ×2 (15:11→20:42)
[2019-02-20] MEDS: DOCUSATE SODIUM 100 MG CAPSULE PO SCH ×2 (15:11→20:42)
[2019-02-20] MEDS: PANTOPRAZOLE 40 MG TABLET PO SCH (15:11)
[2019-02-20] MEDS: traZODone 50 MG TABLET PO PRN (20:42)
[2019-02-20] MEDS: ENOXAPARIN 30 MG/0.3 ML SYRINGE SUBCUT SCH (20:42)
[2019-02-20] MEDS: DESITIN 4OZ/NYSTATIN 15 GRAM MIXTURE PASTE TOP SCH (22:12)
[2019-02-21] MEDS: HYDROmorphone 2 MG/1 ML VIAL IV PRN ×3 (00:15→23:46)
[2019-02-21 04:44] LABS: Basophils # 0.1 10*3/uL (0.0-0.2); Basophils % 0.3 % (0.0-0.8); Hematocrit 29.7 VOL% (35.7-47.0); Hemoglobin 9.3 GM/DL (12.0-16.0); Immature Granulocytes % 10.2 %; Immature Granulocytes Absolute 2.21 #; Lymphocytes # 1.3 10*3/uL (1.4-4.0); Lymphocytes % 6.1 % (21.3-54.2); Mean Corpuscular HGB Conc 31.3 GM/DL (32-36); Mean Corpuscular Volume 87.6 FL (87-102); Mean Platelet Volume 9.2 FL (9.6-12.0); Monocytes % 4.3 % (1.7-12.7); Neutrophils % 79.1 % (38.7-73.9); Platelet Count 409 T/CUMM (130-400); Red Blood Count 3.39 MC/CUMM (3.8-5.5); Red Cell Distribution Width 13.9 % (9.3-17.3); White Blood Count 21.8 T/CUMM (4-12)
[2019-02-21 05:13] LABS: Calcium 7.1 MG/DL (8.5-10.1); Osmolality,Calculated 276.8 MOS/KG (273-304)
[2019-02-21 05:17] LABS: Lymphocytes 1 % (20-55); Platelet Estimate Normal; Segmented Neutrophils 95 % (50-85); Total Cells Counted 100
[2019-02-21] MEDS: PIPERACILLIN/TAZOBACTAM 3,375 MG in SODIUM CHLORIDE 0.9% 100 ML IV SCH ×3 (05:27→21:45)
[2019-02-21] MEDS ORDERED: FAMOTIDINE 20 MG/2 ML VIAL IV ONE (06:00)
[2019-02-21] MEDS ORDERED: METOCLOPRAMIDE 10 MG/2 ML VIAL IV ONE (06:00)
[2019-02-21] MEDS: ALBUTEROL 2.5 MG/3 ML NEB RESP TX SCH ×3 (07:17→19:31)
[2019-02-21] MEDS ORDERED: BUPIVACAINE 0.5% 50 ML VIAL ONE (07:25)
[2019-02-21] MEDS ORDERED: LIDOCAINE 1%/EPI INJ 20 ML VIAL ONE (07:25)
[2019-02-21] MEDS ORDERED: BENZOIN COMPOUND TINCTURE 58 ML BOTTLE TOP ONE (08:11)
[2019-02-21] MEDS ORDERED: PROPOFOL 200 MG/20 ML VIAL IV ONE (08:34)
[2019-02-21] MEDS ORDERED: MIDAZOLAM 2 MG/2 ML VIAL ONE (08:35)
[2019-02-21] MEDS ORDERED: ETOMIDATE 40 MG/20 ML VIAL IV ONE (08:35)
[2019-02-21] MEDS ORDERED: ONDANSETRON 4 MG/2 ML VIAL ONE (08:35)
[2019-02-21] MEDS ORDERED: fentaNYL 100 MCG/2 ML VIAL ONE (08:35)
[2019-02-21] MEDS ORDERED: DEXAMETHASONE 4 MG/1 ML VIAL ONE (08:35)
[2019-02-21] MEDS ORDERED: KETOROLAC 30 MG/1 ML VIAL ONE (08:35)
[2019-02-21] MEDS ORDERED: SODIUM CHLORIDE 0.9% 100 ML IV ONE (08:36)
[2019-02-21] MEDS ORDERED: FAMOTIDINE 20 MG TABLET PO ONE (08:57)
[2019-02-21] MEDS ORDERED: DIAZEPAM 5 MG TABLET PO ONE (08:57)
[2019-02-21] MEDS ORDERED: SCOPOLAMINE 1.5 MG PATCH TRANSDERM ONE (08:57)
[2019-02-21] MEDS: ACETAMINOPHEN 500 MG TABLET PO PRN ×2 (10:07→21:27)
[2019-02-21] MEDS: DOCUSATE SODIUM 100 MG CAPSULE PO SCH ×2 (11:27→21:27)
[2019-02-21] MEDS: PANTOPRAZOLE 40 MG TABLET PO SCH (11:27)
[2019-02-21] MEDS: SERTRALINE 100 MG TABLET PO SCH ×2 (11:27→21:27)
[2019-02-21] MEDS: SODIUM BICARB INJ 50 MEQ, POTASSIUM CHLORIDE INJ 20 MEQ in SODIUM CHLORIDE 0.45% 1,000 ML IV SCH (11:28)
[2019-02-21] MEDS: DESITIN 4OZ/NYSTATIN 15 GRAM MIXTURE PASTE TOP SCH ×2 (11:29→21:34)
[2019-02-21] MEDS: ENOXAPARIN 40 MG/0.4 ML SYRINGE SUBCUT SCH (21:27)
[2019-02-21] MEDS: traZODone 50 MG TABLET PO PRN (21:37)
[2019-02-22] MEDS: SODIUM BICARB INJ 50 MEQ, POTASSIUM CHLORIDE INJ 20 MEQ in SODIUM CHLORIDE 0.45% 1,000 ML IV SCH ×2 (01:28→14:07)
[2019-02-22] MEDS: ACETAMINOPHEN 500 MG TABLET PO PRN ×2 (05:15→14:05)
[2019-02-22] MEDS: PIPERACILLIN/TAZOBACTAM 3,375 MG in SODIUM CHLORIDE 0.9% 100 ML IV SCH ×3 (05:18→21:23)
[2019-02-22 06:13] LABS: Basophils % 0.3 % (0.0-0.8); Eosinophils # 0.2 10*3/uL (0.0-0.87); Eosinophils % 1.1 % (0.00-10.9); Hematocrit 27.7 VOL% (35.7-47.0); Hemoglobin 8.9 GM/DL (12.0-16.0); Immature Granulocytes % 12.5 %; Immature Granulocytes Absolute 1.85 #; Lymphocytes # 2.1 10*3/uL (1.4-4.0); Lymphocytes % 13.9 % (21.3-54.2); Mean Corpuscular HGB Conc 32.1 GM/DL (32-36); Mean Corpuscular Volume 86.8 FL (87-102); Mean Platelet Volume 9.4 FL (9.6-12.0); Monocytes % 5.3 % (1.7-12.7); Neutrophils % 66.9 % (38.7-73.9); Platelet Count 426 T/CUMM (130-400); Red Blood Count 3.19 MC/CUMM (3.8-5.5); Red Cell Distribution Width 13.9 % (9.3-17.3); White Blood Count 14.8 T/CUMM (4-12)
[2019-02-22 06:31] LABS: Osmolality,Calculated 276.7 MOS/KG (273-304)
[2019-02-22 06:44] LABS: Band Neutrophils 1 % (0-10); Lymphocytes 20 % (20-55); Metamyelocytes 1 %; Myelocytes 1 %; Segmented Neutrophils 69 % (50-85); Total Cells Counted 100
[2019-02-22 06:45] LABS: Hypochromasia 1+; Platelet Estimate Increased; Reactive Lymphocytes Few
[2019-02-22] MEDS: ALBUTEROL 2.5 MG/3 ML NEB RESP TX SCH ×3 (07:59→19:33)
[2019-02-22] MEDS: PANTOPRAZOLE 40 MG TABLET PO SCH (09:27)
[2019-02-22] MEDS: SERTRALINE 100 MG TABLET PO SCH ×2 (09:27→21:23)
[2019-02-22] MEDS: HYDROmorphone 2 MG/1 ML VIAL IV PRN ×3 (09:27→21:20)
[2019-02-22] MEDS: DOCUSATE SODIUM 100 MG CAPSULE PO SCH ×2 (09:27→21:23)
[2019-02-22] MEDS: DESITIN 4OZ/NYSTATIN 15 GRAM MIXTURE PASTE TOP SCH ×2 (09:28→21:23)
[2019-02-22] MEDS: diphenhydrAMINE CAP 25 MG CAPSULE PO PRN ×2 (10:56→18:52)
[2019-02-22] MEDS: traZODone 50 MG TABLET PO PRN (21:22)
[2019-02-22] MEDS: ENOXAPARIN 40 MG/0.4 ML SYRINGE SUBCUT SCH (21:23)
[2019-02-23] MEDS: ONDANSETRON 4 MG/2 ML VIAL IV PRN (02:25)
[2019-02-23] MEDS: SODIUM BICARB INJ 50 MEQ, POTASSIUM CHLORIDE INJ 20 MEQ in SODIUM CHLORIDE 0.45% 1,000 ML IV SCH ×2 (03:35→17:41)
[2019-02-23] MEDS: ACETAMINOPHEN 500 MG TABLET PO PRN ×3 (04:46→20:43)
[2019-02-23] MEDS: PIPERACILLIN/TAZOBACTAM 3,375 MG in SODIUM CHLORIDE 0.9% 100 ML IV SCH ×3 (04:47→20:47)
[2019-02-23] MEDS: HYDROmorphone 2 MG/1 ML VIAL IV PRN ×4 (05:46→23:28)
[2019-02-23 05:47] LABS: Basophils % 0.4 % (0.0-0.8); Eosinophils # 0.3 10*3/uL (0.0-0.87); Eosinophils % 2.8 % (0.00-10.9); Hematocrit 29.9 VOL% (35.7-47.0); Hemoglobin 9.5 GM/DL (12.0-16.0); Immature Granulocytes % 13.7 %; Immature Granulocytes Absolute 1.53 #; Lymphocytes # 1.7 10*3/uL (1.4-4.0); Lymphocytes % 15.1 % (21.3-54.2); Mean Corpuscular HGB Conc 31.8 GM/DL (32-36); Mean Corpuscular Volume 86.9 FL (87-102); Mean Platelet Volume 9.3 FL (9.6-12.0); Monocytes % 5.5 % (1.7-12.7); Neutrophils % 62.5 % (38.7-73.9); Platelet Count 407 T/CUMM (130-400); Red Blood Count 3.44 MC/CUMM (3.8-5.5); Red Cell Distribution Width 14.1 % (9.3-17.3); White Blood Count 11.2 T/CUMM (4-12)
[2019-02-23 06:07] LABS: Calcium 6.9 MG/DL (8.5-10.1); Osmolality,Calculated 273.8 MOS/KG (273-304)
[2019-02-23 06:28] LABS: Band Neutrophils 2 % (0-10); Eosinophils 2 % (0-10); Lymphocytes 20 % (20-55); Segmented Neutrophils 69 % (50-85); Total Cells Counted 100
[2019-02-23 06:29] LABS: Hypochromasia 1+; Platelet Estimate Increased; Reactive Lymphocytes 1+
[2019-02-23] MEDS: DOCUSATE SODIUM 100 MG CAPSULE PO SCH ×2 (08:39→20:48)
[2019-02-23] MEDS: SERTRALINE 100 MG TABLET PO SCH ×2 (08:39→20:45)
[2019-02-23] MEDS: PANTOPRAZOLE 40 MG TABLET PO SCH (08:39)
[2019-02-23] MEDS: DESITIN 4OZ/NYSTATIN 15 GRAM MIXTURE PASTE TOP SCH ×2 (08:39→20:47)
[2019-02-23] MEDS: ALBUTEROL 2.5 MG/3 ML NEB RESP TX SCH ×3 (08:50→20:25)
[2019-02-23] MEDS: traZODone 50 MG TABLET PO PRN (20:45)
[2019-02-23] MEDS: ENOXAPARIN 40 MG/0.4 ML SYRINGE SUBCUT SCH (20:46)
[2019-02-24] MEDS: HYDROmorphone 2 MG/1 ML VIAL IV PRN ×3 (01:59→14:33)
[2019-02-24] MEDS: ONDANSETRON 4 MG/2 ML VIAL IV PRN ×2 (03:36→10:13)
[2019-02-24] MEDS: PIPERACILLIN/TAZOBACTAM 3,375 MG in SODIUM CHLORIDE 0.9% 100 ML IV SCH ×3 (04:58→21:36)
[2019-02-24 05:45] LABS: Basophils # 0.1 10*3/uL (0.0-0.2); Basophils % 0.5 % (0.0-0.8); Eosinophils # 0.3 10*3/uL (0.0-0.87); Eosinophils % 2.7 % (0.00-10.9); Hematocrit 30.9 VOL% (35.7-47.0); Hemoglobin 9.6 GM/DL (12.0-16.0); Immature Granulocytes % 9.8 %; Immature Granulocytes Absolute 1.08 #; Lymphocytes # 1.5 10*3/uL (1.4-4.0); Lymphocytes % 13.5 % (21.3-54.2); Mean Corpuscular HGB Conc 31.1 GM/DL (32-36); Mean Corpuscular Volume 88.3 FL (87-102); Neutrophils % 67.5 % (38.7-73.9); Platelet Count 379 T/CUMM (130-400)
[2019-02-24 06:02] LABS: Calcium 6.8 MG/DL (8.5-10.1); Osmolality,Calculated 272.8 MOS/KG (273-304)
[2019-02-24 06:17] LABS: Eosinophils 3 % (0-10); Hypochromasia 1+; Lymphocytes 15 % (20-55); Microcytosis 1+; Platelet Estimate Normal; Segmented Neutrophils 79 % (50-85); Total Cells Counted 100
[2019-02-24] MEDS: ALBUTEROL 2.5 MG/3 ML NEB RESP TX SCH ×3 (07:00→19:05)
[2019-02-24] MEDS ORDERED: DIAZEPAM 5 MG TABLET PO ONE (07:00)
[2019-02-24] MEDS ORDERED: SCOPOLAMINE 1.5 MG PATCH TRANSDERM ONE (07:00)
[2019-02-24] MEDS ORDERED: FAMOTIDINE 20 MG TABLET PO ONE (07:00)
[2019-02-24] MEDS ORDERED: BUPIVACAINE 0.5% 50 ML VIAL ONE (07:43)
[2019-02-24] MEDS ORDERED: LIDOCAINE 1%/EPI INJ 20 ML VIAL ONE (07:43)
[2019-02-24] MEDS ORDERED: BENZOIN COMPOUND TINCTURE 58 ML BOTTLE TOP ONE (08:35)
[2019-02-24] MEDS ORDERED: PROPOFOL 200 MG/20 ML VIAL IV ONE (09:12)
[2019-02-24] MEDS ORDERED: ONDANSETRON 4 MG/2 ML VIAL ONE (09:13)
[2019-02-24] MEDS ORDERED: MIDAZOLAM 2 MG/2 ML VIAL ONE (09:13)
[2019-02-24] MEDS ORDERED: fentaNYL 100 MCG/2 ML VIAL ONE (09:13)
[2019-02-24] MEDS ORDERED: ACETAMINOPHEN 1,000 MG/100 ML VIAL IV ONE (09:13)
[2019-02-24] MEDS: PROMETHAZINE 25 MG/1 ML VIAL IM PRN ×2 (10:55→16:17)
[2019-02-24] MEDS ORDERED: SODIUM BICARB INJ 50 MEQ, POTASSIUM CHLORIDE INJ 20 MEQ in SODIUM CHLORIDE 0.45% 1,000 ML IV SCH (11:15)
[2019-02-24] MEDS: PANTOPRAZOLE 40 MG TABLET PO SCH (13:22)
[2019-02-24] MEDS: DOCUSATE SODIUM 100 MG CAPSULE PO SCH ×2 (13:22→21:35)
[2019-02-24] MEDS: SODIUM BICARB INJ 50 MEQ, POTASSIUM CHLORIDE INJ 20 MEQ in SODIUM CHLORIDE 0.45% 1,000 ML IV SCH (13:22)
[2019-02-24] MEDS: SERTRALINE 100 MG TABLET PO SCH ×2 (13:22→21:35)
[2019-02-24] MEDS: DESITIN 4OZ/NYSTATIN 15 GRAM MIXTURE PASTE TOP SCH ×2 (13:23→21:41)
[2019-02-24] MEDS: ACETAMINOPHEN 500 MG TABLET PO PRN (18:13)
[2019-02-24] MEDS: traZODone 50 MG TABLET PO PRN (21:35)
[2019-02-24] MEDS: ENOXAPARIN 40 MG/0.4 ML SYRINGE SUBCUT SCH (21:35)
[2019-02-25] MEDS: HYDROmorphone 2 MG/1 ML VIAL IV PRN ×4 (03:39→21:03)
[2019-02-25] MEDS: ONDANSETRON 4 MG/2 ML VIAL IV PRN ×2 (03:39→21:05)
[2019-02-25 04:55] LABS: Basophils # 0.1 10*3/uL (0.0-0.2); Basophils % 0.5 % (0.0-0.8); Eosinophils # 0.3 10*3/uL (0.0-0.87); Eosinophils % 2.4 % (0.00-10.9); Hematocrit 31.3 VOL% (35.7-47.0); Hemoglobin 9.7 GM/DL (12.0-16.0); Immature Granulocytes % 8.7 %; Immature Granulocytes Absolute 0.95 #; Lymphocytes # 1.4 10*3/uL (1.4-4.0); Lymphocytes % 12.9 % (21.3-54.2); Mean Corpuscular Volume 87.7 FL (87-102); Mean Platelet Volume 8.9 FL (9.6-12.0); Monocytes % 5.7 % (1.7-12.7); Neutrophils % 69.8 % (38.7-73.9); Platelet Count 366 T/CUMM (130-400); Red Blood Count 3.57 MC/CUMM (3.8-5.5); Red Cell Distribution Width 13.7 % (9.3-17.3); White Blood Count 10.9 T/CUMM (4-12)
[2019-02-25 05:28] LABS: Calcium 7.1 MG/DL (8.5-10.1); Osmolality,Calculated 271.8 MOS/KG (273-304)
[2019-02-25] MEDS: PIPERACILLIN/TAZOBACTAM 3,375 MG in SODIUM CHLORIDE 0.9% 100 ML IV SCH ×2 (05:36→15:19)
[2019-02-25 05:48] LABS: Band Neutrophils 1 % (0-10); Eosinophils 4 % (0-10); Lymphocytes 17 % (20-55); Myelocytes 3 %; Segmented Neutrophils 72 % (50-85); Total Cells Counted 100
[2019-02-25 05:49] LABS: Hypochromasia 1+; Platelet Estimate Normal; Reactive Lymphocytes Few
[2019-02-25] MEDS: ALBUTEROL 2.5 MG/3 ML NEB RESP TX SCH ×3 (07:14→19:40)
[2019-02-25] MEDS: DOCUSATE SODIUM 100 MG CAPSULE PO SCH ×2 (08:58→21:03)
[2019-02-25] MEDS: ACETAMINOPHEN 500 MG TABLET PO PRN ×2 (08:58→15:20)
[2019-02-25] MEDS: SERTRALINE 100 MG TABLET PO SCH ×2 (08:58→21:03)
[2019-02-25] MEDS: DESITIN 4OZ/NYSTATIN 15 GRAM MIXTURE PASTE TOP SCH ×2 (08:59→21:04)
[2019-02-25] MEDS: PANTOPRAZOLE 40 MG TABLET PO SCH (08:59)
[2019-02-25] MEDS: PROMETHAZINE 25 MG/1 ML VIAL IM PRN (11:29)
[2019-02-25] MEDS: ENOXAPARIN 40 MG/0.4 ML SYRINGE SUBCUT SCH (21:02)
[2019-02-25] MEDS: traZODone 50 MG TABLET PO PRN (21:03)
[2019-02-26] MEDS: ACETAMINOPHEN 500 MG TABLET PO PRN ×2 (01:08→14:34)
[2019-02-26] MEDS: PROMETHAZINE 25 MG/1 ML VIAL IM PRN ×3 (01:08→14:34)
[2019-02-26] MEDS: PIPERACILLIN/TAZOBACTAM 3,375 MG in SODIUM CHLORIDE 0.9% 100 ML IV SCH ×3 (01:12→18:03)
[2019-02-26] MEDS: HYDROmorphone 2 MG/1 ML VIAL IV PRN ×4 (03:08→21:28)
[2019-02-26 05:20] LABS: Basophils % 0.3 % (0.0-0.8); Eosinophils # 0.2 10*3/uL (0.0-0.87); Eosinophils % 2.6 % (0.00-10.9); Hematocrit 31.2 VOL% (35.7-47.0); Hemoglobin 9.8 GM/DL (12.0-16.0); Immature Granulocytes Absolute 0.48 #; Lymphocytes # 1.3 10*3/uL (1.4-4.0); Lymphocytes % 16.4 % (21.3-54.2); Mean Corpuscular HGB Conc 31.4 GM/DL (32-36); Mean Corpuscular Volume 88.1 FL (87-102); Neutrophils % 66.7 % (38.7-73.9); Platelet Count 371 T/CUMM (130-400); Red Blood Count 3.54 MC/CUMM (3.8-5.5); Red Cell Distribution Width 13.7 % (9.3-17.3)
[2019-02-26 05:34] LABS: Calcium 7.6 MG/DL (8.5-10.1); Osmolality,Calculated 274.7 MOS/KG (273-304)
[2019-02-26 06:42] LABS: Eosinophils 1 % (0-10); Lymphocytes 16 % (20-55); Metamyelocytes 1 %; Segmented Neutrophils 70 % (50-85); Total Cells Counted 100
[2019-02-26 06:43] LABS: Atypical Lymphocytes Few; Hypochromasia 1+; Platelet Estimate Normal; Reactive Lymphocytes 1+
[2019-02-26] MEDS: ALBUTEROL 2.5 MG/3 ML NEB RESP TX SCH ×3 (07:14→19:25)
[2019-02-26] MEDS: ONDANSETRON 4 MG/2 ML VIAL IV PRN ×2 (07:23→11:46)
[2019-02-26] MEDS: DOCUSATE SODIUM 100 MG CAPSULE PO SCH ×2 (08:52→21:27)
[2019-02-26] MEDS: PANTOPRAZOLE 40 MG TABLET PO SCH (08:52)
[2019-02-26] MEDS: SIMETHICONE CHEW 125 MG TABLET PO PRN (08:52)
[2019-02-26] MEDS: SERTRALINE 100 MG TABLET PO SCH ×2 (08:52→21:28)
[2019-02-26] MEDS: DESITIN 4OZ/NYSTATIN 15 GRAM MIXTURE PASTE TOP SCH ×2 (08:53→21:36)
[2019-02-26] MEDS ORDERED: SCOPOLAMINE 1.5 MG PATCH TRANSDERM ONE (09:00)
[2019-02-26] MEDS: ENOXAPARIN 40 MG/0.4 ML SYRINGE SUBCUT SCH (21:27)
[2019-02-26] MEDS: diphenhydrAMINE CAP 25 MG CAPSULE PO PRN (22:10)
[2019-02-27] MEDS: ACETAMINOPHEN 500 MG TABLET PO PRN (00:59)
[2019-02-27] MEDS: ONDANSETRON 4 MG/2 ML VIAL IV PRN (01:00)
[2019-02-27] MEDS: PIPERACILLIN/TAZOBACTAM 3,375 MG in SODIUM CHLORIDE 0.9% 100 ML IV SCH ×2 (01:39→12:16)
[2019-02-27] MEDS: HYDROmorphone 2 MG/1 ML VIAL IV PRN ×7 (03:04→21:35)
[2019-02-27] MEDS: PROMETHAZINE 25 MG/1 ML VIAL IM PRN (03:05)
[2019-02-27 05:31] LABS: Basophils % 0.5 % (0.0-0.8); Eosinophils # 0.2 10*3/uL (0.0-0.87); Eosinophils % 2.4 % (0.00-10.9); Hemoglobin 9.7 GM/DL (12.0-16.0); Immature Granulocytes % 4.6 %; Immature Granulocytes Absolute 0.38 #; Lymphocytes # 1.5 10*3/uL (1.4-4.0); Lymphocytes % 18.1 % (21.3-54.2); Mean Corpuscular HGB Conc 31.3 GM/DL (32-36); Mean Corpuscular Volume 87.6 FL (87-102); Monocytes % 7.8 % (1.7-12.7); Neutrophils % 66.6 % (38.7-73.9); Platelet Count 401 T/CUMM (130-400); Red Blood Count 3.54 MC/CUMM (3.8-5.5); Red Cell Distribution Width 13.8 % (9.3-17.3); White Blood Count 8.3 T/CUMM (4-12)
[2019-02-27 05:52] LABS: Albumin 1.9 G/DL (3.4-5.0); Bilirubin,Total 0.5 MG/DL (0.2-1.0); Calcium 8.3 MG/DL (8.5-10.1); Osmolality,Calculated 275.7 MOS/KG (273-304); Total Protein 6.4 G/DL (6.4-8.3)
[2019-02-27] MEDS: ALBUTEROL 2.5 MG/3 ML NEB RESP TX SCH ×3 (07:01→19:11)
[2019-02-27] MEDS ORDERED: LIDOCAINE 1%/EPI INJ 20 ML VIAL ONE (09:13)
[2019-02-27] MEDS ORDERED: LACTATED RINGERS 1,000 ML IV SCH (10:00)
[2019-02-27] MEDS ORDERED: fentaNYL 100 MCG/2 ML VIAL ONE (10:37)
[2019-02-27] MEDS ORDERED: PROPOFOL 200 MG/20 ML VIAL IV ONE (10:37)
[2019-02-27] MEDS ORDERED: SODIUM CHLORIDE 0.9% 250 ML IV ONE (10:37)
[2019-02-27] MEDS ORDERED: MIDAZOLAM 2 MG/2 ML VIAL ONE (10:37)
[2019-02-27] MEDS ORDERED: KETAMINE 500 MG/10 ML VIAL ONE (10:38)
[2019-02-27] MEDS ORDERED: ONDANSETRON 4 MG/2 ML VIAL IV PRN (10:43)
[2019-02-27] MEDS: DOCUSATE SODIUM 100 MG CAPSULE PO SCH ×2 (12:15→21:40)
[2019-02-27] MEDS: SERTRALINE 100 MG TABLET PO SCH ×2 (12:15→21:35)
[2019-02-27] MEDS: PANTOPRAZOLE 40 MG TABLET PO SCH ×2 (12:15→21:36)
[2019-02-27] MEDS: DESITIN 4OZ/NYSTATIN 15 GRAM MIXTURE PASTE TOP SCH ×2 (12:15→21:36)
[2019-02-27] MEDS: diphenhydrAMINE CAP 25 MG CAPSULE PO PRN (21:35)
[2019-02-27] MEDS: ENOXAPARIN 40 MG/0.4 ML SYRINGE SUBCUT SCH (22:41)
[2019-02-28] MEDS: PIPERACILLIN/TAZOBACTAM 3,375 MG in SODIUM CHLORIDE 0.9% 100 ML IV SCH ×3 (01:05→17:07)
[2019-02-28] MEDS: ACETAMINOPHEN 500 MG TABLET PO PRN (01:05)
[2019-02-28] MEDS: HYDROmorphone 2 MG/1 ML VIAL IV PRN ×5 (01:06→23:34)
[2019-02-28] MEDS: ONDANSETRON 4 MG/2 ML VIAL IV PRN ×3 (01:57→20:32)
[2019-02-28 05:40] LABS: Basophils % 0.4 % (0.0-0.8); Eosinophils # 0.2 10*3/uL (0.0-0.87); Eosinophils % 1.5 % (0.00-10.9); Hematocrit 29.8 VOL% (35.7-47.0); Hemoglobin 9.2 GM/DL (12.0-16.0); Immature Granulocytes % 2.3 %; Immature Granulocytes Absolute 0.23 #; Lymphocytes # 1.7 10*3/uL (1.4-4.0); Lymphocytes % 16.9 % (21.3-54.2); Mean Corpuscular HGB Conc 30.9 GM/DL (32-36); Mean Corpuscular Volume 89.2 FL (87-102); Mean Platelet Volume 8.9 FL (9.6-12.0); Monocytes % 8.6 % (1.7-12.7); Neutrophils % 70.3 % (38.7-73.9); Platelet Count 357 T/CUMM (130-400); Red Blood Count 3.34 MC/CUMM (3.8-5.5); Red Cell Distribution Width 13.9 % (9.3-17.3); White Blood Count 10.2 T/CUMM (4-12)
[2019-02-28] MEDS: ALBUTEROL 2.5 MG/3 ML NEB RESP TX SCH ×3 (07:13→19:32)
[2019-02-28] MEDS: SERTRALINE 100 MG TABLET PO SCH ×2 (09:32→20:12)
[2019-02-28] MEDS: DOCUSATE SODIUM 100 MG CAPSULE PO SCH ×2 (09:32→20:12)
[2019-02-28] MEDS: PANTOPRAZOLE 40 MG TABLET PO SCH ×2 (09:32→20:12)
[2019-02-28] MEDS: DESITIN 4OZ/NYSTATIN 15 GRAM MIXTURE PASTE TOP SCH ×2 (09:42→20:12)
[2019-02-28] MEDS: diphenhydrAMINE CAP 25 MG CAPSULE PO PRN ×3 (10:13→23:26)
[2019-02-28] MEDS: ENOXAPARIN 40 MG/0.4 ML SYRINGE SUBCUT SCH (20:11)
[2019-03-01] MEDS: PIPERACILLIN/TAZOBACTAM 3,375 MG in SODIUM CHLORIDE 0.9% 100 ML IV SCH ×3 (01:23→17:45)
[2019-03-01] MEDS: ONDANSETRON 4 MG/2 ML VIAL IV PRN ×3 (02:43→22:02)
[2019-03-01 05:48] LABS: Basophils % 0.4 % (0.0-0.8); Eosinophils # 0.1 10*3/uL (0.0-0.87); Hematocrit 29.2 VOL% (35.7-47.0); Hemoglobin 9.2 GM/DL (12.0-16.0); Immature Granulocytes % 2.1 %; Immature Granulocytes Absolute 0.15 #; Lymphocytes # 1.6 10*3/uL (1.4-4.0); Lymphocytes % 21.8 % (21.3-54.2); Mean Corpuscular HGB Conc 31.5 GM/DL (32-36); Mean Platelet Volume 8.7 FL (9.6-12.0); Monocytes % 11.5 % (1.7-12.7); Neutrophils % 62.2 % (38.7-73.9); Platelet Count 345 T/CUMM (130-400); Red Blood Count 3.32 MC/CUMM (3.8-5.5); Red Cell Distribution Width 13.9 % (9.3-17.3); White Blood Count 7.1 T/CUMM (4-12)
[2019-03-01] MEDS: HYDROmorphone 2 MG/1 ML VIAL IV PRN ×5 (06:15→21:05)
[2019-03-01] MEDS: PROMETHAZINE 25 MG/1 ML VIAL IM PRN (06:15)
[2019-03-01 06:16] LABS: Calcium 8.3 MG/DL (8.5-10.1); Osmolality,Calculated 275.7 MOS/KG (273-304)
[2019-03-01] MEDS: diphenhydrAMINE CAP 25 MG CAPSULE PO PRN ×3 (06:16→21:04)
[2019-03-01] MEDS: ALBUTEROL 2.5 MG/3 ML NEB RESP TX SCH ×3 (06:56→19:42)
[2019-03-01] MEDS: PANTOPRAZOLE 40 MG TABLET PO SCH ×2 (09:23→21:04)
[2019-03-01] MEDS: SERTRALINE 100 MG TABLET PO SCH ×2 (09:23→21:06)
[2019-03-01] MEDS: DOCUSATE SODIUM 100 MG CAPSULE PO SCH ×2 (09:23→21:04)
[2019-03-01] MEDS: DESITIN 4OZ/NYSTATIN 15 GRAM MIXTURE PASTE TOP SCH ×2 (09:40→21:06)
[2019-03-01] MEDS ORDERED: hydrOXYzine HCL 10 MG TABLET PO PRN (09:46)
[2019-03-01] MEDS: traZODone 50 MG TABLET PO PRN (21:04)
[2019-03-01] MEDS: ENOXAPARIN 40 MG/0.4 ML SYRINGE SUBCUT SCH (21:06)
[2019-03-02] MEDS: PROMETHAZINE 25 MG/1 ML VIAL IM PRN ×2 (00:04→05:37)
[2019-03-02] MEDS: HYDROmorphone 2 MG/1 ML VIAL IV PRN ×5 (00:04→21:53)
[2019-03-02] MEDS: PIPERACILLIN/TAZOBACTAM 3,375 MG in SODIUM CHLORIDE 0.9% 100 ML IV SCH ×3 (00:55→16:34)
[2019-03-02] MEDS: ACETAMINOPHEN 500 MG TABLET PO PRN (03:44)
[2019-03-02] MEDS: diphenhydrAMINE CAP 25 MG CAPSULE PO PRN ×2 (03:44→20:55)
[2019-03-02] MEDS: ONDANSETRON 4 MG/2 ML VIAL IV PRN ×3 (04:01→20:53)
[2019-03-02 04:54] LABS: Basophils # 0.1 10*3/uL (0.0-0.2); Basophils % 0.8 % (0.0-0.8); Eosinophils # 0.1 10*3/uL (0.0-0.87); Eosinophils % 2.1 % (0.00-10.9); Hematocrit 30.3 VOL% (35.7-47.0); Hemoglobin 9.6 GM/DL (12.0-16.0); Immature Granulocytes % 1.6 %; Lymphocytes # 1.4 10*3/uL (1.4-4.0); Lymphocytes % 22.8 % (21.3-54.2); Mean Corpuscular HGB Conc 31.7 GM/DL (32-36); Mean Corpuscular Volume 87.8 FL (87-102); Mean Platelet Volume 9.1 FL (9.6-12.0); Monocytes % 9.6 % (1.7-12.7); Neutrophils % 63.1 % (38.7-73.9); Platelet Count 374 T/CUMM (130-400); Red Blood Count 3.45 MC/CUMM (3.8-5.5); Red Cell Distribution Width 14.1 % (9.3-17.3); White Blood Count 6.1 T/CUMM (4-12)
[2019-03-02 05:21] LABS: Calcium 8.5 MG/DL (8.5-10.1)
[2019-03-02] MEDS: ALBUTEROL 2.5 MG/3 ML NEB RESP TX SCH ×3 (07:09→19:16)
[2019-03-02] MEDS: PANTOPRAZOLE 40 MG TABLET PO SCH ×2 (09:21→20:55)
[2019-03-02] MEDS: SERTRALINE 100 MG TABLET PO SCH ×2 (09:21→20:55)
[2019-03-02] MEDS: DOCUSATE SODIUM 100 MG CAPSULE PO SCH ×2 (09:21→20:55)
[2019-03-02] MEDS: SKIN HEALING OINT (AQUAPHOR) 50 GM TUBE TOP PRN (09:21)
[2019-03-02] MEDS: SODIUM HYPOCHLORITE 0.25% IRRIG 473 ML BOTTLE TOP SCH (09:22)
[2019-03-02] MEDS: DESITIN 4OZ/NYSTATIN 15 GRAM MIXTURE PASTE TOP SCH ×2 (09:22→20:55)
[2019-03-02] MEDS: traZODone 50 MG TABLET PO PRN (20:54)
[2019-03-02] MEDS: ENOXAPARIN 40 MG/0.4 ML SYRINGE SUBCUT SCH (20:54)
[2019-03-03] MEDS: HYDROmorphone 2 MG/1 ML VIAL IV PRN ×5 (00:59→20:55)
[2019-03-03] MEDS: PIPERACILLIN/TAZOBACTAM 3,375 MG in SODIUM CHLORIDE 0.9% 100 ML IV SCH ×3 (01:00→17:29)
[2019-03-03] MEDS: diphenhydrAMINE CAP 25 MG CAPSULE PO PRN ×2 (02:45→23:03)
[2019-03-03] MEDS: PROMETHAZINE 25 MG/1 ML VIAL IM PRN ×2 (02:45→15:14)
[2019-03-03] MEDS: ONDANSETRON 4 MG/2 ML VIAL IV PRN ×3 (04:52→20:53)
[2019-03-03 06:06] LABS: Basophils % 0.7 % (0.0-0.8); Eosinophils # 0.1 10*3/uL (0.0-0.87); Eosinophils % 2.2 % (0.00-10.9); Hematocrit 30.6 VOL% (35.7-47.0); Hemoglobin 9.6 GM/DL (12.0-16.0); Immature Granulocytes % 1.7 %; Immature Granulocytes Absolute 0.09 #; Lymphocytes # 1.5 10*3/uL (1.4-4.0); Lymphocytes % 27.9 % (21.3-54.2); Mean Corpuscular HGB Conc 31.4 GM/DL (32-36); Mean Corpuscular Volume 87.7 FL (87-102); Mean Platelet Volume 9.1 FL (9.6-12.0); Monocytes % 11.2 % (1.7-12.7); Neutrophils % 56.3 % (38.7-73.9); Platelet Count 356 T/CUMM (130-400); Red Blood Count 3.49 MC/CUMM (3.8-5.5); White Blood Count 5.4 T/CUMM (4-12)
[2019-03-03 06:19] LABS: Calcium 8.6 MG/DL (8.5-10.1); Osmolality,Calculated 279.4 MOS/KG (273-304)
[2019-03-03] MEDS ORDERED: PANTOPRAZOLE 40 MG VIAL IV ONE (08:10)
[2019-03-03] MEDS ORDERED: SCOPOLAMINE 1.5 MG PATCH TRANSDERM ONE (08:10)
[2019-03-03] MEDS: ALBUTEROL 2.5 MG/3 ML NEB RESP TX SCH ×3 (08:42→19:34)
[2019-03-03] MEDS ORDERED: LACTATED RINGERS 1,000 ML IV SCH (09:00)
[2019-03-03] MEDS ORDERED: MIDAZOLAM 2 MG/2 ML VIAL ONE (09:25)
[2019-03-03] MEDS ORDERED: fentaNYL 100 MCG/2 ML VIAL ONE (09:25)
[2019-03-03] MEDS ORDERED: PROPOFOL 200 MG/20 ML VIAL IV ONE (09:25)
[2019-03-03] MEDS ORDERED: ONDANSETRON 4 MG/2 ML VIAL ONE (09:26)
[2019-03-03] MEDS ORDERED: PROMETHAZINE 25 MG/1 ML VIAL ONE (09:26)
[2019-03-03] MEDS: SODIUM HYPOCHLORITE 0.25% IRRIG 473 ML BOTTLE TOP SCH (10:05)
[2019-03-03] MEDS: SERTRALINE 100 MG TABLET PO SCH ×2 (12:01→20:59)
[2019-03-03] MEDS: DOCUSATE SODIUM 100 MG CAPSULE PO SCH ×2 (12:01→20:59)
[2019-03-03] MEDS: DESITIN 4OZ/NYSTATIN 15 GRAM MIXTURE PASTE TOP SCH ×2 (12:01→21:02)
[2019-03-03] MEDS: PANTOPRAZOLE 40 MG TABLET PO SCH ×2 (12:01→21:00)
[2019-03-03] MEDS: ENOXAPARIN 40 MG/0.4 ML SYRINGE SUBCUT SCH (21:00)
[2019-03-04] MEDS: PIPERACILLIN/TAZOBACTAM 3,375 MG in SODIUM CHLORIDE 0.9% 100 ML IV SCH ×3 (01:06→16:53)
[2019-03-04] MEDS: ONDANSETRON 4 MG/2 ML VIAL IV PRN ×2 (03:46→10:34)
[2019-03-04] MEDS: HYDROmorphone 2 MG/1 ML VIAL IV PRN ×5 (03:48→23:34)
[2019-03-04] MEDS: PROMETHAZINE 25 MG/1 ML VIAL IM PRN (04:50)
[2019-03-04 05:58] LABS: Basophils % 0.5 % (0.0-0.8); Eosinophils # 0.1 10*3/uL (0.0-0.87); Eosinophils % 2.2 % (0.00-10.9); Hematocrit 29.3 VOL% (35.7-47.0); Immature Granulocytes % 0.9 %; Immature Granulocytes Absolute 0.05 #; Lymphocytes # 1.2 10*3/uL (1.4-4.0); Lymphocytes % 20.1 % (21.3-54.2); Mean Corpuscular HGB Conc 30.7 GM/DL (32-36); Mean Corpuscular Volume 89.1 FL (87-102); Mean Platelet Volume 8.4 FL (9.6-12.0); Monocytes % 8.8 % (1.7-12.7); Neutrophils % 67.5 % (38.7-73.9); Platelet Count 306 T/CUMM (130-400); Red Blood Count 3.29 MC/CUMM (3.8-5.5); White Blood Count 5.8 T/CUMM (4-12)
[2019-03-04 06:11] LABS: Calcium 8.6 MG/DL (8.5-10.1); Osmolality,Calculated 274.8 MOS/KG (273-304)
[2019-03-04] MEDS: ALBUTEROL 2.5 MG/3 ML NEB RESP TX SCH ×3 (07:14→20:38)
[2019-03-04] MEDS: DOCUSATE SODIUM 100 MG CAPSULE PO SCH ×2 (08:23→20:27)
[2019-03-04] MEDS: SIMETHICONE CHEW 125 MG TABLET PO PRN (08:23)
[2019-03-04] MEDS: SERTRALINE 100 MG TABLET PO SCH ×2 (08:23→20:27)
[2019-03-04] MEDS: PANTOPRAZOLE 40 MG TABLET PO SCH ×2 (08:23→20:27)
[2019-03-04] MEDS: DESITIN 4OZ/NYSTATIN 15 GRAM MIXTURE PASTE TOP SCH ×2 (09:38→20:30)
[2019-03-04] MEDS: SODIUM HYPOCHLORITE 0.25% IRRIG 473 ML BOTTLE TOP SCH (10:37)
[2019-03-04] MEDS: METOCLOPRAMIDE 10 MG/2 ML VIAL IV SCH ×3 (11:10→20:23)
[2019-03-04] MEDS: diphenhydrAMINE CAP 25 MG CAPSULE PO PRN ×2 (14:54→23:33)
[2019-03-04] MEDS: ENOXAPARIN 40 MG/0.4 ML SYRINGE SUBCUT SCH (20:28)
[2019-03-05] MEDS: PIPERACILLIN/TAZOBACTAM 3,375 MG in SODIUM CHLORIDE 0.9% 100 ML IV SCH ×3 (00:51→16:59)
[2019-03-05 05:28] LABS: Calcium 8.2 MG/DL (8.5-10.1); Osmolality,Calculated 280.3 MOS/KG (273-304)
[2019-03-05 05:31] LABS: Basophils % 0.7 % (0.0-0.8); Eosinophils # 0.1 10*3/uL (0.0-0.87); Hematocrit 27.8 VOL% (35.7-47.0); Hemoglobin 8.7 GM/DL (12.0-16.0); Immature Granulocytes % 1.2 %; Immature Granulocytes Absolute 0.05 #; Lymphocytes # 1.4 10*3/uL (1.4-4.0); Mean Corpuscular HGB Conc 31.3 GM/DL (32-36); Mean Platelet Volume 8.7 FL (9.6-12.0); Monocytes % 10.7 % (1.7-12.7); Neutrophils % 52.4 % (38.7-73.9); Platelet Count 292 T/CUMM (130-400); Red Blood Count 3.16 MC/CUMM (3.8-5.5); Red Cell Distribution Width 13.9 % (9.3-17.3); White Blood Count 4.3 T/CUMM (4-12)
[2019-03-05] MEDS: METOCLOPRAMIDE 10 MG/2 ML VIAL IV SCH ×4 (07:00→21:16)
[2019-03-05] MEDS: ONDANSETRON 4 MG/2 ML VIAL IV PRN ×2 (07:03→10:15)
[2019-03-05] MEDS: ALBUTEROL 2.5 MG/3 ML NEB RESP TX SCH ×3 (07:18→19:06)
[2019-03-05] MEDS: DOCUSATE SODIUM 100 MG CAPSULE PO SCH ×2 (09:53→21:15)
[2019-03-05] MEDS: PANTOPRAZOLE 40 MG TABLET PO SCH ×2 (09:53→21:18)
[2019-03-05] MEDS: SERTRALINE 100 MG TABLET PO SCH ×2 (09:53→21:15)
[2019-03-05] MEDS: SKIN HEALING OINT (AQUAPHOR) 50 GM TUBE TOP PRN (09:54)
[2019-03-05] MEDS: SODIUM HYPOCHLORITE 0.25% IRRIG 473 ML BOTTLE TOP SCH (09:55)
[2019-03-05] MEDS: DESITIN 4OZ/NYSTATIN 15 GRAM MIXTURE PASTE TOP SCH ×2 (09:55→21:18)
[2019-03-05] MEDS: CHLORHEXIDINE 4% SOLN 118 ML BOTTLE TOP SCH (10:11)
[2019-03-05] MEDS: HYDROmorphone 2 MG/1 ML VIAL IV PRN ×4 (10:15→21:24)
[2019-03-05] MEDS: diphenhydrAMINE CAP 25 MG CAPSULE PO PRN (21:15)
[2019-03-05] MEDS: traZODone 50 MG TABLET PO PRN (21:15)
[2019-03-05] MEDS: ENOXAPARIN 40 MG/0.4 ML SYRINGE SUBCUT SCH (21:17)
[2019-03-06] MEDS: HYDROmorphone 2 MG/1 ML VIAL IV PRN ×3 (04:11→12:43)
[2019-03-06] MEDS: PIPERACILLIN/TAZOBACTAM 3,375 MG in SODIUM CHLORIDE 0.9% 100 ML IV SCH ×3 (04:13→18:15)
[2019-03-06] MEDS: ONDANSETRON 4 MG/2 ML VIAL IV PRN (07:26)
[2019-03-06] MEDS: ALBUTEROL 2.5 MG/3 ML NEB RESP TX SCH ×3 (08:34→19:22)
[2019-03-06] MEDS: SERTRALINE 100 MG TABLET PO SCH ×2 (08:43→21:39)
[2019-03-06] MEDS: PANTOPRAZOLE 40 MG TABLET PO SCH ×2 (08:43→21:39)
[2019-03-06] MEDS: METOCLOPRAMIDE 10 MG/2 ML VIAL IV SCH ×4 (08:43→21:43)
[2019-03-06] MEDS: DOCUSATE SODIUM 100 MG CAPSULE PO SCH ×2 (08:43→21:39)
[2019-03-06 09:15] LABS: Alanine Aminotransferase 16 U/L (13-56); Albumin 2.3 G/DL (3.4-5.0); Alkaline Phosphatase 86 U/L (45-117); Aspartate Amino Transferase 13 U/L (0-37); Bilirubin,Indirect 0.2 MG/DL (0.0-1.0); Bilirubin,Total < 0.39 MG/DL (0.2-1.0); Total Protein 6.8 G/DL (6.4-8.3)
[2019-03-06] MEDS: SODIUM HYPOCHLORITE 0.25% IRRIG 473 ML BOTTLE TOP SCH (11:51)
[2019-03-06] MEDS: CHLORHEXIDINE 4% SOLN 118 ML BOTTLE TOP SCH (11:51)
[2019-03-06] MEDS: DESITIN 4OZ/NYSTATIN 15 GRAM MIXTURE PASTE TOP SCH ×2 (11:51→21:50)
[2019-03-06] MEDS: diphenhydrAMINE CAP 25 MG CAPSULE PO PRN ×2 (15:01→21:54)
[2019-03-06] MEDS: traZODone 50 MG TABLET PO PRN (21:38)
[2019-03-06] MEDS: ENOXAPARIN 40 MG/0.4 ML SYRINGE SUBCUT SCH (21:49)
[2019-03-06] MEDS: ACETAMINOPHEN 500 MG TABLET PO PRN (21:54)
[2019-03-07] MEDS: PIPERACILLIN/TAZOBACTAM 3,375 MG in SODIUM CHLORIDE 0.9% 100 ML IV SCH ×3 (00:20→16:41)
[2019-03-07 04:52] LABS: Basophils % 0.3 % (0.0-0.8); Eosinophils # 0.1 10*3/uL (0.0-0.87); Eosinophils % 3.5 % (0.00-10.9); Hematocrit 30.6 VOL% (35.7-47.0); Hemoglobin 9.7 GM/DL (12.0-16.0); Immature Granulocytes % 0.8 %; Immature Granulocytes Absolute 0.03 #; Lymphocytes % 27.5 % (21.3-54.2); Mean Corpuscular HGB Conc 31.7 GM/DL (32-36); Mean Corpuscular Volume 85.5 FL (87-102); Mean Platelet Volume 8.7 FL (9.6-12.0); Monocytes % 10.8 % (1.7-12.7); Neutrophils % 57.1 % (38.7-73.9); Platelet Count 254 T/CUMM (130-400); Red Blood Count 3.58 MC/CUMM (3.8-5.5); Red Cell Distribution Width 13.8 % (9.3-17.3); White Blood Count 3.7 T/CUMM (4-12)
[2019-03-07] MEDS: ONDANSETRON 4 MG/2 ML VIAL IV PRN (07:04)
[2019-03-07] MEDS: ALBUTEROL 2.5 MG/3 ML NEB RESP TX SCH ×3 (07:10→19:28)
[2019-03-07] MEDS: HYDROmorphone 2 MG/1 ML VIAL IV PRN ×4 (07:49→18:11)
[2019-03-07] MEDS: METOCLOPRAMIDE 10 MG/2 ML VIAL IV SCH ×4 (07:51→21:19)
[2019-03-07] MEDS: PROMETHAZINE 25 MG/1 ML VIAL IM PRN (07:52)
[2019-03-07] MEDS: SERTRALINE 100 MG TABLET PO SCH ×2 (08:29→21:17)
[2019-03-07] MEDS: PANTOPRAZOLE 40 MG TABLET PO SCH ×2 (08:29→21:17)
[2019-03-07] MEDS: DOCUSATE SODIUM 100 MG CAPSULE PO SCH ×2 (08:29→21:17)
[2019-03-07] MEDS: DESITIN 4OZ/NYSTATIN 15 GRAM MIXTURE PASTE TOP SCH ×2 (08:30→21:37)
[2019-03-07] MEDS: NYSTATIN 500,000 UNIT/5 ML UDCUP SWISH/SWAL SCH ×4 (09:09→21:37)
[2019-03-07] MEDS: CHLORHEXIDINE 4% SOLN 118 ML BOTTLE TOP SCH (10:32)
[2019-03-07] MEDS: SODIUM HYPOCHLORITE 0.25% IRRIG 473 ML BOTTLE TOP SCH (10:32)
[2019-03-07] MEDS: ACETAMINOPHEN 500 MG TABLET PO PRN ×2 (12:54→21:16)
[2019-03-07 12:58] LABS: Albumin 2.6 G/DL (3.4-5.0); Bilirubin,Total 0.4 MG/DL (0.2-1.0); Osmolality,Calculated 279.4 MOS/KG (273-304); Total Protein 7.2 G/DL (6.4-8.3)
[2019-03-07] MEDS: traZODone 50 MG TABLET PO PRN (21:16)
[2019-03-07] MEDS: diphenhydrAMINE CAP 25 MG CAPSULE PO PRN (21:18)
[2019-03-07] MEDS: ENOXAPARIN 40 MG/0.4 ML SYRINGE SUBCUT SCH (21:27)
[2019-03-08] MEDS: PIPERACILLIN/TAZOBACTAM 3,375 MG in SODIUM CHLORIDE 0.9% 100 ML IV SCH ×3 (01:45→17:12)
[2019-03-08] MEDS: ONDANSETRON 4 MG/2 ML VIAL IV PRN (06:01)
[2019-03-08] MEDS: ALBUTEROL 2.5 MG/3 ML NEB RESP TX SCH ×3 (08:25→19:09)
[2019-03-08] MEDS: HYDROmorphone 2 MG/1 ML VIAL IV PRN ×3 (08:57→19:28)
[2019-03-08] MEDS: PROMETHAZINE 25 MG/1 ML VIAL IM PRN ×2 (08:58→15:00)
[2019-03-08] MEDS: METOCLOPRAMIDE 10 MG/2 ML VIAL IV SCH ×4 (08:58→21:44)
[2019-03-08] MEDS: SODIUM HYPOCHLORITE 0.25% IRRIG 473 ML BOTTLE TOP SCH (09:52)
[2019-03-08] MEDS: CHLORHEXIDINE 4% SOLN 118 ML BOTTLE TOP SCH (09:52)
[2019-03-08] MEDS: NYSTATIN 500,000 UNIT/5 ML UDCUP SWISH/SWAL SCH ×4 (09:58→21:49)
[2019-03-08] MEDS: SERTRALINE 100 MG TABLET PO SCH ×2 (09:59→21:50)
[2019-03-08] MEDS: DOCUSATE SODIUM 100 MG CAPSULE PO SCH ×2 (09:59→21:50)
[2019-03-08] MEDS: PANTOPRAZOLE 40 MG TABLET PO SCH ×2 (09:59→21:50)
[2019-03-08] MEDS: DESITIN 4OZ/NYSTATIN 15 GRAM MIXTURE PASTE TOP SCH ×2 (10:00→21:55)
[2019-03-08] MEDS: ACETAMINOPHEN 500 MG TABLET PO PRN (12:45)
[2019-03-08] MEDS: ENOXAPARIN 40 MG/0.4 ML SYRINGE SUBCUT SCH (21:48)
[2019-03-08] MEDS: traZODone 50 MG TABLET PO PRN (21:50)
[2019-03-08] MEDS: CETIRIZINE 10 MG TABLET PO SCH (21:53)
[2019-03-09] MEDS: PIPERACILLIN/TAZOBACTAM 3,375 MG in SODIUM CHLORIDE 0.9% 100 ML IV SCH ×3 (02:20→16:07)
[2019-03-09] MEDS: ONDANSETRON 4 MG/2 ML VIAL IV PRN ×3 (02:23→18:23)
[2019-03-09] MEDS: HYDROmorphone 2 MG/1 ML VIAL IV PRN ×4 (02:25→21:50)
[2019-03-09] MEDS: ALBUTEROL 2.5 MG/3 ML NEB RESP TX SCH ×3 (06:51→19:04)
[2019-03-09] MEDS: METOCLOPRAMIDE 10 MG/2 ML VIAL IV SCH ×4 (07:13→21:54)
[2019-03-09] MEDS: PANTOPRAZOLE 40 MG TABLET PO SCH ×2 (08:35→21:59)
[2019-03-09] MEDS: SERTRALINE 100 MG TABLET PO SCH ×2 (08:35→22:00)
[2019-03-09] MEDS: DOCUSATE SODIUM 100 MG CAPSULE PO SCH ×2 (08:35→21:59)
[2019-03-09] MEDS: CETIRIZINE 10 MG TABLET PO SCH (08:35)
[2019-03-09] MEDS: SODIUM HYPOCHLORITE 0.25% IRRIG 473 ML BOTTLE TOP SCH (08:49)
[2019-03-09] MEDS: CHLORHEXIDINE 4% SOLN 118 ML BOTTLE TOP SCH (08:49)
[2019-03-09] MEDS: DESITIN 4OZ/NYSTATIN 15 GRAM MIXTURE PASTE TOP SCH ×2 (08:49→21:57)
[2019-03-09] MEDS: NYSTATIN 500,000 UNIT/5 ML UDCUP SWISH/SWAL SCH ×4 (09:54→21:58)
[2019-03-09] MEDS: ACETAMINOPHEN 500 MG TABLET PO PRN (12:20)
[2019-03-09] MEDS: SIMETHICONE CHEW 125 MG TABLET PO PRN (16:59)
[2019-03-09] MEDS: traZODone 50 MG TABLET PO PRN (21:59)
[2019-03-09] MEDS: ENOXAPARIN 40 MG/0.4 ML SYRINGE SUBCUT SCH (21:59)
[2019-03-09] MEDS: diphenhydrAMINE CAP 25 MG CAPSULE PO PRN (23:03)
[2019-03-10] MEDS: PIPERACILLIN/TAZOBACTAM 3,375 MG in SODIUM CHLORIDE 0.9% 100 ML IV SCH ×3 (01:15→20:57)
[2019-03-10 05:26] LABS: Basophils % 0.4 % (0.0-0.8); Eosinophils # 0.6 10*3/uL (0.0-0.87); Hematocrit 29.8 VOL% (35.7-47.0); Hemoglobin 9.4 GM/DL (12.0-16.0); Immature Granulocytes % 1.3 %; Immature Granulocytes Absolute 0.07 #; Lymphocytes % 18.3 % (21.3-54.2); Mean Corpuscular HGB Conc 31.5 GM/DL (32-36); Mean Corpuscular Volume 86.6 FL (87-102); Mean Platelet Volume 8.8 FL (9.6-12.0); Monocytes % 7.9 % (1.7-12.7); Neutrophils % 61.1 % (38.7-73.9); Platelet Count 243 T/CUMM (130-400); Red Blood Count 3.44 MC/CUMM (3.8-5.5); Red Cell Distribution Width 13.8 % (9.3-17.3); White Blood Count 5.5 T/CUMM (4-12)
[2019-03-10 06:00] LABS: Band Neutrophils 4 % (0-10); Eosinophils 12 % (0-10); Hypochromasia 1+; Lymphocytes 19 % (20-55); Metamyelocytes 2 %; Platelet Estimate Normal; Segmented Neutrophils 55 % (50-85); Target Cells Few; Total Cells Counted 100
[2019-03-10] MEDS: ONDANSETRON 4 MG/2 ML VIAL IV PRN ×2 (06:24→15:51)
[2019-03-10] MEDS: METOCLOPRAMIDE 10 MG/2 ML VIAL IV SCH ×4 (08:12→20:56)
[2019-03-10] MEDS: HYDROmorphone 2 MG/1 ML VIAL IV PRN ×3 (08:13→19:48)
[2019-03-10] MEDS: ALBUTEROL 2.5 MG/3 ML NEB RESP TX SCH ×3 (08:16→19:18)
[2019-03-10 08:43] LABS: Calcium 8.5 MG/DL (8.5-10.1); Osmolality,Calculated 273.7 MOS/KG (273-304)
[2019-03-10] MEDS: SERTRALINE 100 MG TABLET PO SCH ×2 (09:17→20:56)
[2019-03-10] MEDS: DOCUSATE SODIUM 100 MG CAPSULE PO SCH ×2 (09:17→20:56)
[2019-03-10] MEDS: PANTOPRAZOLE 40 MG TABLET PO SCH ×2 (09:17→20:56)
[2019-03-10] MEDS: PROMETHAZINE 25 MG/1 ML VIAL IM PRN (09:20)
[2019-03-10] MEDS: DESITIN 4OZ/NYSTATIN 15 GRAM MIXTURE PASTE TOP SCH ×2 (09:21→20:57)
[2019-03-10] MEDS: SODIUM HYPOCHLORITE 0.25% IRRIG 473 ML BOTTLE TOP SCH (10:38)
[2019-03-10] MEDS: NYSTATIN 500,000 UNIT/5 ML UDCUP SWISH/SWAL SCH ×3 (10:39→20:57)
[2019-03-10] MEDS: CHLORHEXIDINE 4% SOLN 118 ML BOTTLE TOP SCH (10:39)
[2019-03-10] MEDS: CETIRIZINE 10 MG TABLET PO SCH (10:39)
[2019-03-10] MEDS: traZODone 50 MG TABLET PO PRN (20:55)
[2019-03-10] MEDS: ENOXAPARIN 40 MG/0.4 ML SYRINGE SUBCUT SCH (20:56)
[2019-03-10] MEDS ORDERED: CETIRIZINE 10 MG TABLET PO SCH (21:00)
[2019-03-11] MEDS: ACETAMINOPHEN 500 MG TABLET PO PRN (03:05)
[2019-03-11] MEDS: HYDROmorphone 2 MG/1 ML VIAL IV PRN ×3 (03:05→17:04)
[2019-03-11] MEDS: PIPERACILLIN/TAZOBACTAM 3,375 MG in SODIUM CHLORIDE 0.9% 100 ML IV SCH ×2 (04:25→12:18)
[2019-03-11] MEDS: ALBUTEROL 2.5 MG/3 ML NEB RESP TX SCH ×2 (07:10→13:31)
[2019-03-11] MEDS: SERTRALINE 100 MG TABLET PO SCH (09:14)
[2019-03-11] MEDS: METOCLOPRAMIDE 10 MG/2 ML VIAL IV SCH ×3 (09:14→17:03)
[2019-03-11] MEDS: DOCUSATE SODIUM 100 MG CAPSULE PO SCH (09:14)
[2019-03-11] MEDS: NYSTATIN 500,000 UNIT/5 ML UDCUP SWISH/SWAL SCH (09:14)
[2019-03-11] MEDS: PANTOPRAZOLE 40 MG TABLET PO SCH (09:15)
[2019-03-11] MEDS: DESITIN 4OZ/NYSTATIN 15 GRAM MIXTURE PASTE TOP SCH (09:16)
[2019-03-11] MEDS: ONDANSETRON 4 MG/2 ML VIAL IV PRN (11:31)
[2019-03-11 12:06] VITALS: BP 143/86
== END 2019-03-11 18:04 | DRG 264 ==
LOC: N.ED 13:04 → N.EDINP 16:37 → N.2E 18:45
PROVIDERS: ADMIT Internal Medicine; ATTEND Internal Medicine

== ENCOUNTER 2022-05-16 16:53 | Inpatient (IN) ==
[2022-05-16] MEDS ORDERED: ACETAMINOPHEN 325 MG TABLET PO PRN (17:03)
[2022-05-16] MEDS ORDERED: HYDROmorphone 1 MG/1 ML SYRINGE SUBCUT PRN (17:18)
[2022-05-16] MEDS: LACTATED RINGERS 1,000 ML IV SCH (19:28)
[2022-05-16] MEDS: PROMETHAZINE 25 MG/1 ML VIAL IM PRN (19:43)
[2022-05-16] MEDS: HYDROmorphone 1 MG/1 ML SYRINGE IV PRN (19:45)
[2022-05-16] MEDS: DOCUSATE SODIUM 100 MG CAPSULE PO SCH (20:32)
[2022-05-16] MEDS: PIPERACILLIN/TAZOBACTAM 3,375 MG in SODIUM CHLORIDE 0.9% 100 ML IV SCH (20:35)
[2022-05-16] MEDS: ENOXAPARIN 40 MG/0.4 ML SYRINGE SUBCUT SCH (20:35)
[2022-05-17 01:13] LABS: Amorphous Crystals,Urine Few /HPF (Few); Mucus,Urine Occasional /LPF (Occasional); Squamous Epithelial Cell,Urine Occasional /HPF (0-10)
[2022-05-17 01:14] LABS: Urine Appearance TURBID (Clear); Urine Color Yellow (Yellow)
[2022-05-17 01:15] LABS: Bilirubin,Urine Negative (Negative); Blood, Urine Negative (Negative); Glucose,Urine (UA) Negative (Negative); Ketones,Urine Negative (Negative); Nitrite,Urine Negative (Negative); Protein,Urine 30 mg/dL (Negative); Urine Specific Gravity >= 1.030 (1.001-1.035); Urine Urobilinogen 0.2 eU/dL (<2.0); Urine pH 5.5 (4.5-8.0)
[2022-05-17] MEDS: LACTATED RINGERS 1,000 ML IV SCH ×3 (03:20→20:00)
[2022-05-17] MEDS: HYDROmorphone 1 MG/1 ML SYRINGE IV PRN ×3 (03:53→22:00)
[2022-05-17] MEDS: PROMETHAZINE 25 MG/1 ML VIAL IM PRN ×2 (03:53→11:47)
[2022-05-17] MEDS: PIPERACILLIN/TAZOBACTAM 3,375 MG in SODIUM CHLORIDE 0.9% 100 ML IV SCH ×3 (03:54→22:06)
[2022-05-17 05:17] LABS: Basophils % 0.3 % (0.0-0.8); Eosinophils # 0.2 10*3/uL (0.0-0.87); Eosinophils % 1.7 % (0.00-10.9); Hematocrit 42.2 VOL% (35.7-47.0); Hemoglobin 13.7 GM/DL (12.0-16.0); Immature Granulocytes % 0.6 %; Immature Granulocytes Absolute 0.05 #; Lymphocytes # 2.4 10*3/uL (1.4-4.0); Lymphocytes % 26.5 % (21.3-54.2); Mean Corpuscular HGB Conc 32.5 GM/DL (32-36); Mean Corpuscular Volume 85.9 FL (87-102); Mean Platelet Volume 9.4 FL (9.6-12.0); Monocytes # 0.6 10*3/uL (0.11-0.8); Monocytes % 7.2 % (1.7-12.7); Neutrophils % 63.7 % (38.7-73.9); Platelet Count 293 T/CUMM (130-400); Red Blood Count 4.91 MC/CUMM (3.8-5.5); Red Cell Distribution Width 14.2 % (9.3-17.3); White Blood Count 8.9 T/CUMM (4-12)
[2022-05-17 05:52] LABS: Albumin 3.1 G/DL (3.4-5.0); Calcium 8.5 MG/DL (8.5-10.1); Osmolality,Calculated 279.3 MOS/KG (273-304); Total Protein 6.6 G/DL (6.4-8.2)
[2022-05-17] MEDS ORDERED: GABAPENTIN 100 MG CAPSULE PO PRN (08:49)
[2022-05-17] MEDS ORDERED: FUROSEMIDE 40 MG TABLET PO PRN (08:49)
[2022-05-17] MEDS ORDERED: LORATADINE 10 MG TABLET PO PRN (08:49)
[2022-05-17] MEDS ORDERED: diphenhydrAMINE CAP 25 MG CAPSULE PO PRN (08:49)
[2022-05-17] MEDS: PANTOPRAZOLE 40 MG VIAL IV SCH (09:25)
[2022-05-17] MEDS: busPIRone 5 MG TABLET PO SCH ×3 (09:32→22:00)
[2022-05-17] MEDS: FUROSEMIDE 40 MG TABLET PO SCH (09:32)
[2022-05-17] MEDS: DOCUSATE SODIUM 100 MG CAPSULE PO SCH ×2 (09:32→22:00)
[2022-05-17] MEDS: NEBIVOLOL 10 MG TABLET PO SCH (09:34)
[2022-05-17] MEDS: SERTRALINE 100 MG TABLET PO SCH ×2 (11:41→22:00)
[2022-05-17] MEDS: CIPROFLOXACIN/DEXAMETHASONE OTIC SUSP 7.5 ML BOTTLE LEFT EAR SCH ×4 (11:48→21:59)
[2022-05-17] MEDS: ONDANSETRON 4 MG/2 ML VIAL IV PRN ×2 (14:31→22:02)
[2022-05-17] MEDS: ENOXAPARIN 40 MG/0.4 ML SYRINGE SUBCUT SCH (22:01)
[2022-05-18] MEDS: LACTATED RINGERS 1,000 ML IV SCH (04:14)
[2022-05-18] MEDS: PIPERACILLIN/TAZOBACTAM 3,375 MG in SODIUM CHLORIDE 0.9% 100 ML IV SCH (04:14)
[2022-05-18 06:05] LABS: Basophils % 0.4 % (0.0-0.8); Eosinophils # 0.4 10*3/uL (0.0-0.87); Eosinophils % 5.4 % (0.00-10.9); Hematocrit 39.3 VOL% (35.7-47.0); Hemoglobin 12.7 GM/DL (12.0-16.0); Immature Granulocytes % 0.4 %; Immature Granulocytes Absolute 0.03 #; Lymphocytes # 2.6 10*3/uL (1.4-4.0); Lymphocytes % 32.2 % (21.3-54.2); Mean Corpuscular HGB Conc 32.3 GM/DL (32-36); Mean Corpuscular Volume 87.3 FL (87-102); Mean Platelet Volume 10.3 FL (9.6-12.0); Monocytes # 0.5 10*3/uL (0.11-0.8); Monocytes % 6.8 % (1.7-12.7); Neutrophils % 54.8 % (38.7-73.9); Platelet Count 250 T/CUMM (130-400); Red Cell Distribution Width 14.6 % (9.3-17.3); White Blood Count 7.9 T/CUMM (4-12)
[2022-05-18 06:22] LABS: Albumin 2.6 G/DL (3.4-5.0); Bilirubin,Total 0.6 MG/DL (0.20-1.00); Calcium 8.5 MG/DL (8.5-10.1); Osmolality,Calculated 274.5 MOS/KG (273-304); Potassium 4.4 MMOL/L (3.5-5.1); Total Protein 6.1 G/DL (6.4-8.2)
[2022-05-18] MEDS: NEBIVOLOL 10 MG TABLET PO SCH (08:40)
[2022-05-18] MEDS: busPIRone 5 MG TABLET PO SCH (08:40)
[2022-05-18] MEDS: DOCUSATE SODIUM 100 MG CAPSULE PO SCH (08:40)
[2022-05-18] MEDS: SERTRALINE 100 MG TABLET PO SCH (08:40)
[2022-05-18] MEDS: CIPROFLOXACIN/DEXAMETHASONE OTIC SUSP 7.5 ML BOTTLE LEFT EAR SCH (08:41)
[2022-05-18] MEDS: FUROSEMIDE 40 MG TABLET PO SCH (08:41)
[2022-05-18] MEDS: PANTOPRAZOLE 40 MG VIAL IV SCH (10:40)
[2022-05-18 11:23] VITALS: BP 116/48
== END 2022-05-18 13:10 | disposition home or self-care (01) | DRG 392 ==
LOC: N.5E 18:57
PROVIDERS: ADMIT Internal Medicine; ATTEND Internal Medicine

== ENCOUNTER 2022-07-01 19:35 | Observation (INO) ==
[2022-07-01] MEDS ORDERED: ONDANSETRON 4 MG/2 ML VIAL IV STA (20:01)
[2022-07-01] MEDS ORDERED: SODIUM CHLORIDE 0.9% 1,000 ML IV STA (20:01)
[2022-07-01 20:32] LABS: Basophils % 0.2 % (0.0-0.8); Eosinophils # 0.2 10*3/uL (0.0-0.87); Eosinophils % 1.6 % (0.00-10.9); Hemoglobin 14.2 GM/DL (12.0-16.0); Immature Granulocytes % 0.5 %; Immature Granulocytes Absolute 0.05 #; Lymphocytes # 1.8 10*3/uL (1.4-4.0); Lymphocytes % 18.8 % (21.3-54.2); Mean Corpuscular Volume 85.7 FL (87-102); Mean Platelet Volume 9.3 FL (9.6-12.0); Monocytes # 0.4 10*3/uL (0.11-0.8); Monocytes % 4.1 % (1.7-12.7); Neutrophils % 74.8 % (38.7-73.9); Platelet Count 284 T/CUMM (130-400); Red Blood Count 5.02 MC/CUMM (3.8-5.5); Red Cell Distribution Width 13.7 % (9.3-17.3); White Blood Count 9.3 T/CUMM (4-12)
[2022-07-01 20:54] LABS: Albumin 3.2 G/DL (3.4-5.0); Bilirubin,Total 0.7 MG/DL (0.20-1.00); Calcium 9.1 MG/DL (8.5-10.1); Potassium 3.8 MMOL/L (3.5-5.1); Total Protein 6.9 G/DL (6.4-8.2)
[2022-07-01] MEDS ORDERED: HYDROmorphone 1 MG/1 ML SYRINGE IV STA (21:13)
[2022-07-01] MEDS ORDERED: ONDANSETRON 4 MG/2 ML VIAL IV ONE (21:13)
[2022-07-01 21:24] LABS: Mucus,Urine Occasional /LPF (Occasional); RBC,Urine 1 /HPF (0-4); Squamous Epithelial Cell,Urine Occasional /HPF (0-10)
[2022-07-01 21:25] LABS: Bilirubin,Urine Negative (Negative); Blood, Urine Negative (Negative); Glucose,Urine (UA) Negative (Negative); Ketones,Urine Negative (Negative); Nitrite,Urine Negative (Negative); Protein,Urine Negative (Negative); Urine Appearance Clear (Clear); Urine Color Yellow (Yellow)
[2022-07-01] MEDS ORDERED: HYDROmorphone 1 MG/1 ML SYRINGE IV PRN (23:12)
[2022-07-01] MEDS ORDERED: ONDANSETRON 4 MG/2 ML VIAL IV PRN (23:12)
[2022-07-01] MEDS ORDERED: ACETAMINOPHEN 325 MG TABLET PO PRN (23:12)
[2022-07-02] MEDS: SODIUM CHLORIDE 0.9% 1,000 ML IV SCH ×3 (04:55→20:55)
[2022-07-02 05:12] LABS: Basophils % 0.2 % (0.0-0.8); Eosinophils # 0.2 10*3/uL (0.0-0.87); Hematocrit 40.8 VOL% (35.7-47.0); Hemoglobin 13.2 GM/DL (12.0-16.0); Immature Granulocytes % 0.5 %; Immature Granulocytes Absolute 0.05 #; Lymphocytes # 2.7 10*3/uL (1.4-4.0); Lymphocytes % 28.6 % (21.3-54.2); Mean Corpuscular HGB Conc 32.4 GM/DL (32-36); Mean Corpuscular Volume 86.1 FL (87-102); Mean Platelet Volume 9.3 FL (9.6-12.0); Monocytes # 0.6 10*3/uL (0.11-0.8); Monocytes % 6.7 % (1.7-12.7); Platelet Count 278 T/CUMM (130-400); Red Blood Count 4.74 MC/CUMM (3.8-5.5); Red Cell Distribution Width 13.7 % (9.3-17.3); White Blood Count 9.3 T/CUMM (4-12)
[2022-07-02 05:41] LABS: Bilirubin,Total 0.6 MG/DL (0.20-1.00); Calcium 9.1 MG/DL (8.5-10.1); Osmolality,Calculated 272.7 MOS/KG (273-304); Potassium 4.1 MMOL/L (3.5-5.1); Total Protein 6.7 G/DL (6.4-8.2)
[2022-07-02] MEDS: PANTOPRAZOLE 40 MG TABLET PO SCH (08:28)
[2022-07-02] MEDS: NEBIVOLOL 10 MG TABLET PO SCH (08:28)
[2022-07-02] MEDS: FUROSEMIDE 40 MG TABLET PO SCH ×2 (08:28→20:54)
[2022-07-02] MEDS: busPIRone 5 MG TABLET PO SCH ×3 (08:29→20:54)
[2022-07-02] MEDS: DOCUSATE SODIUM 100 MG CAPSULE PO SCH ×2 (08:29→20:54)
[2022-07-02] MEDS: SERTRALINE 100 MG TABLET PO SCH ×2 (08:29→20:54)
[2022-07-02] MEDS ORDERED: CIPROFLOXACIN/DEXAMETHASONE OTIC SUSP 7.5 ML BOTTLE LEFT EAR SCH (09:00)
[2022-07-02] MEDS ORDERED: SULFAMETHOX/TRIMETHOPRIM 800-160 MG TABLET PO SCH (09:00)
[2022-07-02] MEDS: VANCOMYCIN 125 MG CAPSULE PO SCH ×3 (12:02→23:35)
[2022-07-03 04:56] LABS: Basophils % 0.2 % (0.0-0.8); Eosinophils # 0.5 10*3/uL (0.0-0.87); Eosinophils % 4.4 % (0.00-10.9); Hematocrit 40.7 VOL% (35.7-47.0); Hemoglobin 13.1 GM/DL (12.0-16.0); Immature Granulocytes % 0.5 %; Immature Granulocytes Absolute 0.05 #; Lymphocytes # 3.3 10*3/uL (1.4-4.0); Lymphocytes % 30.5 % (21.3-54.2); Mean Corpuscular HGB Conc 32.2 GM/DL (32-36); Mean Corpuscular Volume 86.6 FL (87-102); Mean Platelet Volume 9.3 FL (9.6-12.0); Monocytes # 0.6 10*3/uL (0.11-0.8); Monocytes % 5.7 % (1.7-12.7); Neutrophils % 58.7 % (38.7-73.9); Platelet Count 280 T/CUMM (130-400); Red Cell Distribution Width 13.8 % (9.3-17.3); White Blood Count 10.7 T/CUMM (4-12)
[2022-07-03] MEDS: VANCOMYCIN 125 MG CAPSULE PO SCH ×2 (05:45→10:01)
[2022-07-03] MEDS: SODIUM CHLORIDE 0.9% 1,000 ML IV SCH (05:45)
[2022-07-03 08:09] VITALS: BP 121/75
[2022-07-03] MEDS: busPIRone 5 MG TABLET PO SCH (08:47)
[2022-07-03] MEDS: NEBIVOLOL 10 MG TABLET PO SCH (08:47)
[2022-07-03] MEDS: SERTRALINE 100 MG TABLET PO SCH (08:47)
[2022-07-03] MEDS: FUROSEMIDE 40 MG TABLET PO SCH (08:47)
[2022-07-03] MEDS: PANTOPRAZOLE 40 MG TABLET PO SCH (08:48)
[2022-07-03] MEDS: DOCUSATE SODIUM 100 MG CAPSULE PO SCH (08:48)
== END 2022-07-03 10:19 | disposition home or self-care (01) ==
LOC: EDUNIT# → EDBD → N.ED 19:35 → N.EDINP 19:35 → N.2W 07-02 01:27
PROVIDERS: ADMIT Internal Medicine; ATTEND Internal Medicine